=== PATIENT | male | born 1950 | race Caucasian/White ===

== ENCOUNTER 2018-07-14 12:25 | Emergency (ER) | payer OTHER ==
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
[2018-07-14 12:59] LABS: Basophils % (A) 1 %; Eosinophils # (A) 0.2 k/uL (0-0.7); Eosinophils % (A) 3 %; HCT 47.9 % (39.0-53.0); HGB 15.3 gm/dL (13.0-17.5); Lymphocytes # (A) 1.3 k/uL (1.0-4.8); Lymphocytes % (A) 20 %; MCH 28.6 pg (25.0-35.0); MCV 89.5 fL (80.0-100.0); Mean Platelet Volume 6.7; Monocytes # (A) 0.4 k/uL (0-1.0); Monocytes % (A) 6 %; Neutrophils # (A) 4.6 k/uL (1.3-7.7); Neutrophils % (A) 69 %; Platelet Count 191 k/uL (150-450); RBC 5.34 m/uL (4.30-5.90); RDW 13.3 % (11.5-15.5); WBC 6.7 k/uL (3.8-10.6)
[2018-07-14 13:10] LABS: ALT 22 U/L (21-72); AST 22 U/L (17-59); Albumin 3.7 g/dL (3.5-5.0); Alkaline Phosphatase 45 U/L (38-126); Anion Gap 8 mmol/L; Blood Urea Nitrogen 15 mg/dL (9-20); Calcium 8.7 mg/dL (8.4-10.2); Carbon Dioxide 25 mmol/L (22-30); Chloride 109 mmol/L (98-107); Glucose 104 mg/dL (74-99); Potassium 4.5 mmol/L (3.5-5.1); Sodium 142 mmol/L (137-145); Total Bilirubin 0.7 mg/dL (0.2-1.3); Total Protein 6.8 g/dL (6.3-8.2)
[2018-07-14 13:16] LABS: INR 1.1 (<1.2); Prothrombin Time 10.4 sec (9.0-12.0)
[2018-07-14 13:22] LABS: Alcohol <10 mg/dL; Creatine Kinase 52 U/L (55-170)
[2018-07-14 13:34] LABS: Creatine Kinase MB 0.5 ng/mL (0.0-2.4); Troponin I <0.012 ng/mL (0.000-0.034)
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
[2018-07-14 13:52] LABS: Partial Thromboplastin Time 20.7 sec (22.0-30.0)
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
[2018-07-14] MEDS ORDERED: HYDROcodone/APAP 5-325MG 1 EACH TAB PO STA (14:09)
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
[2018-07-14 14:52] LABS: Appearance,Urine Clear (Clear); Bilirubin,Urine Negative (Negative); Blood,Urine Negative (Negative); Color,Urine Yellow; Glucose,Urine (UA) Negative (Negative); Ketones,Urine Negative (Negative); Leukocyte Esterase,Urine Negative (Negative); Nitrite,Urine Negative (Negative); Protein,Urine Trace (Negative)
[2018-07-14 15:16] VITALS: BP 101/62; PULSE 56; RESP 18; TEMP 97
[2018-07-14 15:17] LABS: Specific Gravity,Urine >1.050 (1.001-1.035)
== END 2018-07-14 15:27 | disposition home or self-care (01) ==
LOC: EC 12:25
DX: S30.1XXA Contusion of abdominal wall, initial encounter (principal); M54.5 Low back pain; E78.5 Hyperlipidemia, unspecified; I10 Essential (primary) hypertension; J45.909 Unspecified asthma, uncomplicated; G47.30 Sleep apnea, unspecified; I25.2 Old myocardial infarction; Z79.899 Other long term (current) drug therapy; Z99.89 Dependence on other enabling machines and devices; V59.49XA Driver of pick-up truck or van injured in collision with other motor vehicles in traffic accident, initial encounter; Y92.410 Unspecified street and highway as the place of occurrence of the external cause
CPT/HCPCS: 36415; 93005; 86900; 86901; 80053; 82550; 82553; 84484; 85025; 85610; 85730; 86850; 81003; 80320; 72170; 71045; 72125; 70450; 71260; 74177; 99285; Q9967

== ENCOUNTER → 2023-09-25 | Outpatient (CLI) | payer MEDICARE, OTHER ==
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
== END | disposition home or self-care (01) ==
LOC: RADCTMAIN 13:15
PROVIDERS: ATTEND Orthopaedic Surgery
DX: M48.061 Spinal stenosis, lumbar region without neurogenic claudication (principal); M99.73 Connective tissue and disc stenosis of intervertebral foramina of lumbar region; M51.35 Other intervertebral disc degeneration, thoracolumbar region
CPT/HCPCS: 72128; 72131

== ENCOUNTER → 2023-12-06 | Outpatient (CLI) | payer OTHER | END | disposition home or self-care (01) | LOC: LABPAT 15:06 | PROVIDERS: ATTEND Orthopaedic Surgery | DX: Z01.812 Encounter for preprocedural laboratory examination (principal); Z22.322 Carrier or suspected carrier of Methicillin resistant Staphylococcus aureus; M43.16 Spondylolisthesis, lumbar region; M48.062 Spinal stenosis, lumbar region with neurogenic claudication | CPT/HCPCS: 86850; 86900; 86901; 87070 ==

== ENCOUNTER 2023-12-12 05:38 | Inpatient (IN) | payer OTHER ==
[2023-12-05 15:44] VITALS: BMI 28.7
--- NOTE | 2023-12-11 14:10 | P.HPOR ---
History of Present Illness H&P Date: 12/06/23 .D:Date: 12/06/23 : 01:51pm .T:Title: *[facility] History and Physical Date of :[birth year] [id number]: NKDA Age: 73 year Height: 6' Weight: 225 lbs BMI: 29.43 kg/m2 Occupation: Retired VAS: 8 Hand:Right IMPRESSION: It was my pleasure to have seen and examined Parviz. I reviewed the patient's clinical syndrome, physical findings, and imaging studies during the appointment today. It is my impression that the patient has a diagnosis of. 1. Grade I spondylolisthesis of L3 on L4 2. L3-4 spondylosis with stenosis 3. Bilateral lower extremity radiculopathy 4. Bilateral lower extremity weakness 5. Low back pain I outlined the natural course history without intervention and various interventional options. Spine Surgery Risk Review Mr. Cota is presenting for evaluation of low back and bilateral lower extremity pain, bilateral lower extremity numbness, tingling, and weakness. It was my pleasure to have seen and examined Mr. Cota. In our visit today we have had a chance to go over subjective complaints, physical examination findings and treatments including the natural course history without intervention and various interventional options. The patients imaging demonstrates: MRI L spine reviewed from OSH on 01/21/23: - Re-reviewed with the patient in office today. images reviewed with the patient. The symptoms states severe spondylosis and stenosis from L2 through S1. There is grade 1 anterior listhesis of L3 on L4 there is nearly complete disc collapse L4 5 and L5-S1. There is severe stenosis with nerve root turbulence noted from L1-L2 L2-L3 and L3-L4. This is due to his severe stenosis in this area with ligamental hypertrophy facet hypertrophy and disc herniation. Usual confirming to his overall flat back syndrome with a pelvic incidence and LL that are mismatched greater than 10. His lumbar lordosis is only 10 through L2. She has Modic endplate changes throughout as well. No acute fracture or lesion noted. CT scan completed at [facility] on 09/25/2023 of the Thoracolum bar Spine: images reviewedand demonstrate severe multilevel degenerative changes from L1 through S1 with vacuum disc phenomena L5-S1 L4-L5 L3-L4. There is decreased segmental lordosis from L3 through S1 with a grade 1 spondylolisthesis L3 on L4. There is near complete disc collapse L4-L5 severe spondylosis as well as L5-S1. There is increased segmental lordosis at L1-L2 compensatory. 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 This is in a hyperkyphotic manner. It is not however outside of abnormal ranges. No acute fracture or dislocation noted at this time. Severe stenosis is related to severe osteoarthritic changes spondylitic changes with facet overgrowth hypertrophy ligamentum flavum hypertrophy's spondylolisthesis and spondylosis. On physical exam, Mr. Cota demonstrates: A continued constant, ache-like pain throughout the low back that radiates down into the bilateral lower extremities with a sharp, shooting quality. The patient notes his right lower extremity pain is much more severe than the left at this time. The patient states his lower extremity pain is associated with numbness, tingling, and weakness. He states his symptoms worsen with all activity, which makes it very difficult for him to complete any of his activities of daily living. The patient reports experiencing severe sleep disturbances related to his ongoing pain and associated symptoms. He notes his symptoms have become intolerable. I have explained to the patient that as their condition progresses it will cause further neurological deficits and eventual paralysis. Based on the patients imaging, physical exam, and the rapid progression and disabling nature of their symptoms, at this time I recommend surgery in the form of a: [id number] decompression and fusion. I discussed the risk and benefits of this procedure at length with Mr. Cota. The patient agreed to considered pursuing the procedure above mentioned. Prior to surgery, she should follow up with her PCP (Cardio, ID, IM etc) for clearance. Questions were invited and answered, and the patient wishes to proceed as outlined below. Currently, I am recommendin.[id number] decompression and fusion 2.Follow up with PCP, advanced manufacturing consultant, and pressed or blown glass worker for surgical clearance 3.Review of surgical risks and benefits as well as an educational packet on the proposed surgical procedure. Risks: All surgical procedures come with inherent risks, including those related to positioning, anesthesia, intraoperative findings, and postoperative complications. It is important to understand that surgery does not come with any guarantee of a successful outcome as complications and adverse events are always possible. The patient was given a handout in office today discussing the surgical procedure and risks associated with the intervention, both of which were discussed with the patient. These risks include but are not limited to the following: * Experiencing same, different or even worse symptoms in back, neck, arms, or legs compared to before surgery. Requiring further surgery or other forms of treatment presently or at some time in the future at same or other levels of the intended spine surgery. On an extreme but fortunately relatively rare basis severe complication such as blindness, stroke, heart attack, temporary and/or permanent nerve injury, paralysis, coma, or may occur, sometimes without known explanation. Surgical complications may include but are not limited to risk of infection, fluid accumulation in the surgical dissection site, including a seroma or hematoma, that requires additional surgery, wound drainage, bleeding, new numbness or weakness, vision changes/loss, spinal fluid leakage, non-healing and/or infected incision, headaches, difficulty or inability to swallow, hoarseness, hemopneumothorax, pneumothorax, impotence, retrograde ejaculation, vaginal dryness; injury to nerves, spinal cord, blood vessels, lymphatics or other vital organs (i.e., bowel injury, injury to the great vessels); he terotopic bone formation; complications related to the hardware such as screws, rods, cages including misplaced hardware, device failure, instrumentation at the wrong spine level, hardware fracture/breakage, or hardware loosening; vertebral failure of the spinal column above or below the newly placed hardware; retained surgical instrumentations or devices and the need for further surgery. * Medical risks of the planned spine surgery include but are not limited to generalized Infections to the whole body or local areas outside of the surgical site (sepsis), heart attack, bleeding, anaphylaxis, meningitis, seizure, epilepsy, hearing loss, burn salgado, laceration of the head or other areas of the body, bruising, hypersensitivity of the skin, bladder over distension; allergic reaction; shoulder injury related to positioning; fat, blood and air clots to other areas of the body like heart, lungs, brain; failure of internal organs such as lungs, kidneys, liver and excessive bleeding. If blood transfusions are necessary, note that transfusions may cause intolerance reactions such as anaphylaxis or other complex reactions. Despite best efforts, the results of spine surgery might not heal in terms of bone, soft tissues such as skin, fascia, ligaments, and joints. Additionally, in order to achieve best possible results, spine surgery may be carried out beyond the initially planned levels and involve decompression, fusion including insertion of hardware at levels other than the original intended area of surgical interest change some portions of the procedure in order to ensure the best possible outcomes. With spine surgery and spinal fusion, there are different off label uses of instrumentation (devices, implants and hardware) as well as biological substances (bone morphogenic proteins, demineralized bone matrix) as well as using extra bone from allograft sources (i.e. cadaver bone) or autograft (iliac crest bone, ribs, or the spine itself). The patient has been given information about these practices and their inherent risks and benefits. [facility] is an educational center that serves as a training facility for neurosurgical and orthopedic GUEST SERVICES and Nursing students. Physician assistants are medically trained surgical providers who function in the outpatient, inpatient, and operating room setting under the direct supervision of the attending surgeon. [facility] has multiple operating rooms with single and overlapping rooms running daily. They currently function under the required guidelines as produced by the [facility] Finance Committee with regards to the overlapping rooms and will continue to comply with changes to this policy as they occur. The requirements include and are complied with as follows: (1) the critical portions of the overlapping rooms will not occur at the same time, (2) the attending physician will be physically present during the critical portions of the procedure and immediately available during the entire case, and (3) a back-up attending is designated should the primary attending not be immediately available. The patient has had a chance to review all the listed information, has been given print outs detailing this information, and has had all his/her questions answered to their satisfaction. It was my pleasure to have seen and examined Mr. Cota. In our visit today we have had a chance to go over my understanding of our patient's current condition, the natural course history without intervention and various interventional options. Questions were invited and answered, and the patient wishes to proceed as outlined above. I have seen and examined the patient for 25 minutes and we have spent more than 50% of the time in repeat and detailed counseling about the patient's condition, its natural course history with out and as much as can be predicted with surgery and re-review of various surgical treatment options. In conclusion, Mr. Cota requested we proceed with the above suggested surgery and are willing to accept risks and limitations of the suggested surgery as nature of the disease process and our best attempts at treatment for the condition. Thank you again for allowing us to be part of your patient's care. Please don't hesitate to contact me if you have any further questions. Follow-up: Post procedure Patient Education: (Informational booklet, instructions, etc) given at today's appointment: Yes .ED:Patient Education: Y Medications Reviewed: YES In our visit today Mr. Cota and I have had a chance to go over my understanding of the patient's current condition, the natural course history without intervention and various interventional options. Questions were invited and answered, and the patient wishes to proceed as outlined above. I will be sure to keep you updated afterMrBere Cota returns here for further follow-up. Thank you again for your referral. Please do not hesitate to contact me if you have any further questions. Signed and authenticated by: [facility] [address] [address] This message is confidential, intended only for the named recipient(s) and may contain information that is privileged or exempt from disclosure under applica ble law. If you are not the intended recipient(s), you are notified that the dissemination, distribution or copying of this information is strictly prohibited. If you received this message in error, please notify the sender then delete this message. Patient verbalizes understanding of the information discussed. The above note was initiated by Indigo Hernandez, physician recording assistant to the vice president for Dr. Lewis Argueta. This note has been reviewed by Dr. Argueta, who has made his personal changes and impressions for this document. CC: Analia Caldera at [facility] Past Medical History Past Medical History: Asthma, GERD/Reflux, Hyperlipidemia, Hypertension, Myocardial Infarction ([place]), Prostate Disorder, Sleep Apnea/CPAP/BIPAP Additional Past Medical History / Comment(s): Enlarged prostate, does not use C- PAP, Vertigo, numbness at times to rt leg. Last Myocardial Infarction Date:: 1998 History of Any Multi-Drug Resistant Organisms: None Reported Past Surgical History: No Surgical Hx Reported Additional Past Surgical History / Comment(s): Repair devitated septum. Past Anesthesia/Blood Transfusion Reactions: No Reported Reaction, Motion Sickness Smoking Status: Never smoker - Past Family History Father Family Medical History: No Reported History Medications and Allergies Home Medications Medication Instructions Recorded Confirmed Type Loratadine [Claritin] 10 mg PO DAILY PRN 07/14/18 12/07/23 History Omeprazole [PriLOSEC] 20 mg PO QAM 07/14/18 12/07/23 History Pravastatin Sodium 80 mg PO HS 07/14/18 12/07/23 History allopurinoL [Zyloprim] 100 mg PO DAILY 07/14/18 12/07/23 History amLODIPine [Norvasc] 10 mg PO DAILY@1200 07/14/18 12/07/23 History lisinopriL [Prinivil] 20 mg PO BID 07/14/18 12/07/23 History Albuterol Inhaler [Ventolin Hfa 1 - 2 puff INHALATION Q6H PRN 12/07/23 12/07/23 History Inhaler] Aspirin 81 mg PO DAILY 12/07/23 12/07/23 History Calcium Carbonate/Vitamin D3 1 each PO BID 12/07/23 12/07/23 History [Calcium 500 mg-Vit D3 5 mcg (200 Unit)] Magnesium(Unk Dose) 1 dose PO DAILY 12/07/23 12/07/23 History Meclizine HCl 12.5 mg PO TID PRN 12/07/23 12/07/23 History Nitroglycerin Sl Tabs [Nitrostat] 0.4 mg SUBLINGUAL Q5M PRN 12/07/23 12/07/23 History Tamsulosin HCl [Flomax] 0.4 mg PO BID 12/07/23 12/07/23 History Allergies Allergy/AdvReac Type Severity Reaction Status Date / Time No Known Allergies Allergy Verified 12/05/23 15:33 Physical Examination Osteopathic Statement: *. No significant issues noted on an osteopathic structural exam other than those noted in the History and Physical/Consult.
[~2023-12-12 05:38] MED LIST: TRANEXAMIC 1,000 MG/100ML-NACL 1,000 MG in SALINE 1 100ML.BAG IVPB PRN
[2023-12-12] MEDS ORDERED: LIDOCAINE 1% (10MG/ML) FOR IV START INTRADERMA PRN (05:47)
[2023-12-12] MEDS: LACTATED RINGERS 1,000 ML IV SCH (05:58)
[2023-12-12] MEDS: ACETAMINOPHEN TAB 500 MG TAB PO PRN (06:08)
[2023-12-12] MEDS: GABAPENTIN 300 MG CAP PO PRN (06:08)
[2023-12-12] MEDS: ONDANSETRON 4 MG/2 ML VIAL IVP PRN (06:33)
[2023-12-12] MEDS ORDERED: ONDANSETRON 4 MG/2 ML VIAL ONE (06:44)
[2023-12-12] MEDS: ONDANSETRON 4 MG/2 ML VIAL IVP ONE (06:53)
[2023-12-12] MEDS: fentaNYL (PF) 50 MCG/ML 2 ML AMP IVP ONE (06:54)
[2023-12-12] MEDS: MIDAZOLAM 2 MG/2 ML VIAL IVP ONE (06:54)
[2023-12-12] MEDS ORDERED: HYDROmorphone 0.5 MG/0.5 ML SYRINGE IVP PRN (07:00)
[2023-12-12] MEDS ORDERED: SUCCINYLCHOLINE CHLORIDE 200 MG/10 ML VIAL IV ONE (07:28)
[2023-12-12] MEDS ORDERED: CALCIUM CHLORIDE 100 MG/ML 10 ML SYRINGE ONE (07:28)
[2023-12-12] MEDS ORDERED: ePHEDrine 50 MG/ML 1 ML VIAL ONE (07:28)
[2023-12-12] MEDS ORDERED: GLYCOPYRROLATE 0.2 MG/ML 2 ML VIAL ONE (07:28)
[2023-12-12] MEDS ORDERED: TRANEXAMIC 1,000 MG/100ML-NACL PREMIX BAG ONE (07:28)
[2023-12-12] MEDS ORDERED: ROCURONIUM 10 MG/ML (5 ML VIAL) IV ONE (07:28)
[2023-12-12] MEDS ORDERED: ALBUMIN HUMAN 5% (25gm) 500 ML VIAL IVPB ONE (07:28)
[2023-12-12] MEDS ORDERED: KETAMINE HCL IN 0.9 % NACL 50 MG/5 ML SYRINGE ONE (07:28)
[2023-12-12] MEDS ORDERED: NEOSTIGMINE 1 MG/ML 10 ML VIAL ONE (07:28)
[2023-12-12] MEDS ORDERED: PROPOFOL 10 MG/ML 20 ML VIAL IV ONE (07:28)
[2023-12-12] MEDS ORDERED: fentaNYL (PF) 50 MCG/ML 2 ML AMP ONE (07:28)
[2023-12-12] MEDS ORDERED: PHENYLEPHRINE 10 MG/ML VIAL ONE (07:28)
[2023-12-12] MEDS ORDERED: LIDOCAINE 1% INJ 10MG/ML (20 ML MDV) ONE (07:28)
[2023-12-12] MEDS ORDERED: VASOPRESSIN 20 UNIT/ML 1 ML VIAL ONE (07:28)
[2023-12-12] MEDS: LACTATED RINGERS 1,000 ML IV ONE ×4 (07:40→15:52)
--- NOTE | 2023-12-12 07:56 | XR ---
EXAMINATION TYPE: XR chest 1V portable DATE OF EXAM: 12/12/2023 7:43 AM CLINICAL INDICATION:Male, 73 years old with history of line placement verification; COMPARISON: Chest radiographs from 07/14/2018 TECHNIQUE: XR chest 1V portable Frontal view of the chest. FINDINGS: Lungs/Pleura: There is no evidence of pleural effusion, focal consolidation, or pneumothorax. Pulmonary vascularity: Unremarkable. Heart/mediastinum: Cardiomediastinal silhouette is unremarkable. Musculoskeletal: No acute osseous pathology. Other findings: None Lines/Tubes: Right internal jugular central venous catheter with distal tip at the cavoatrial junction. IMPRESSION: 1. Right central line placement with tip in appropriate position. 2. No acute cardiopulmonary disease/process.
[2023-12-12] MEDS: ceFAZolin 3,000 MG in SODIUM CHLORIDE 0.9% IRRIGATIO 3,000 ML IRRIGATION ONE (08:21)
[2023-12-12] MEDS: GENTAMICIN 80 MG in SODIUM CHLORIDE 0.9% IRRIGATIO 3,000 ML IRRIGATION ONE (08:21)
[2023-12-12] MEDS: THROMBIN (BOVINE) 5,000 UNIT VIAL TOPICAL ONE (08:21)
[2023-12-12] MEDS: GELATIN SPONGE,ABSORB (LARGE) 1 EACH SPONGE TOPICAL ONE (08:21)
--- NOTE | 2023-12-12 12:02 | P.ANPRN ---
Procedure Note - Anesthesia - Invasive Line Left Arterial Line Time Out Performed: Yes (0700) Date of Procedure: 12/12/23 Time of Procedure: 07:01 Location of Patient: PreOp Preparation: Sterile Prep, Sterile Dressing Arterial Line Location: Radial (left) Ultrasound Used: Yes Purpose - Visualization and Identification of Vasculature: Yes Needle Guage: 20g Image Stored and Saved: Yes Narrative: Central line placement per sterile protocol utilized. +sterile protocol +local +pulsitle flow. +bled and flushed. Dressed with biopatch/dressing
--- NOTE | 2023-12-12 12:04 | P.ANPRN ---
Procedure Note - Anesthesia - Invasive Line Right Central Line Time Out Performed: Yes (0700) Date of Procedure: 12/12/23 Time of Procedure: 07:15 Location of Patient: PreOp Preparation: Sterile Prep, Sterile Dressing Central Line Location: Internal Jugular (right) Ultrasound Used: Yes Purpose - Visualization and Identification of Vasculature: Yes Needle Guage: 18g angio Image Stored and Saved: Yes Narrative: Central line placement per sterile protocol utilized. Anesthesia note Procedure: Right internal jugular central venous catheter insertion: Double- lumen catheter Sterile protocol followed. Right neck prepped. Ultrasound used. Lidocaine 1% used. Using ultrasound local anesthetic was instilled site over right Internal Jugular vein. Angiocath was used to gain access via ultrasound. Once free flow non-pulsatile blood flow was confirmed, 12 inch extension tubing was then placed on Angiocath. Once central venous pressure was confirmed, J-wire was then placed through Angiocath. Angiocath was then withdrawn. Local was instilled at J-wire site. Small skin joanne was then made with provided sterile scalpel. Right IJ double-lumen catheter was then inserted over the wire while maintaining control of wire at all times. Uneventful insertion with dilation. Free flow nonpulsatile blood flow through catheter. Lumens blood and flushed. Secured with suture. Dressings applied. Drapes Removed. Attempts x1.
[2023-12-12 12:35] LABS: ABG Ionized Calcium 5.1 mg/dL (4.5-5.3); ABG Lactic Acid Whole Blood 1.6 mmol/L (0.5-1.6); ABG Oxygen Saturation 99.2 % (94-97); ABG PH 7.34 (7.35-7.45); ABG PO2 292 mmHg (83-108); ABG Potassium Whole Blood 3.6 mmol/L (3.4-4.5); ABG Sodium Whole Blood 141 mmol/L (135-146); Allen Test Performed? Yes
[2023-12-12 13:11] LABS: ABG Base Excess -1.9 mmol/L; ABG Glucose Whole Blood 180 mg/dL (75-99); ABG HCO3 24 mmol/L (21-25); ABG Hematocrit 37 % (34.0-46.0); ABG PCO2 44 mmHg (35-45)
[2023-12-12] MEDS: VANCOMYCIN 1,000 MG VIAL MISCELLANE ONE (13:44)
--- NOTE | 2023-12-12 14:19 | FL ---
EXAMINATION TYPE: FL guidance operating room, XR lumbar spine 2 or 3V Intraoperative/procedural fluor oscopic services were provided. Total fluoroscopy time is 1.23 minutes with a total of 9 submitted im ages to PACS. Please see the operative/procedural note for further details. DAP: 16.25 to Gycm2
[2023-12-12 14:56] LABS: Glucose,Whole Blood 151 mg/dL (70-110)
[2023-12-12 15:05] LABS: HCT 35.1 % (39.0-53.0); HGB 11.9 gm/dL (13.0-17.5); MCH 30.2 pg (25.0-35.0); MCV 88.8 fL (80.0-100.0); Mean Platelet Volume 7.7; Platelet Count 153 k/uL (150-450); RBC 3.95 m/uL (4.30-5.90)
[2023-12-12] MEDS: HYDROmorphone 0.5 MG/0.5 ML SYRINGE IVP ONE ×2 (15:10→15:33)
[2023-12-12 16:51] LABS: Glucose,Whole Blood 129 mg/dL (70-110)
[2023-12-12] MEDS: HYDROcodone/APAP 5-325MG 1 EACH TAB PO PRN (17:29)
[2023-12-12] MEDS ORDERED: ALBUTEROL NEBULIZED 2.5 MG/3 ML INHALATION PRN (17:53)
--- NOTE | 2023-12-12 18:23 | P.OP ---
Date of Procedure: 12/12/23 Preoperative Diagnosis: Current Active Problems Lumbar stenosis with neurogenic claudication (Acute) Neurogenic claudication due to lumbar spinal stenosis (Acute) Multilevel lumbosacral spondylosis with radiculopathy (Acute) Lumbosacral spondylosis with radiculopathy (Acute) Lumbar spondylosis with myelopathy (Acute) Atrophy of muscle of both lower legs (Acute) Postoperative Diagnosis: Current Active Problems Lumbar stenosis with neurogenic claudication (Acute) Neurogenic claudication due to lumbar spinal stenosis (Acute) Multilevel lumbosacral spondylosis with radiculopathy (Acute) Lumbosacral spondylosis with radiculopathy (Acute) Lumbar spondylosis with myelopathy (Acute) Atrophy of muscle of both lower legs (Acute) Procedure(s) Performed: 42857 OSTEOTOMY OF SPINE, POSTERIOR OR POSTEROLATERAL APPROACH, 3 COLUMNS, 1 VERTEBRAL SEGMENT (EG, PEDICLE/VERTEBRAL BODY SUBTRACTION); LUMBAR L5-S1 85543 ARTHRODESIS, COMBINED POSTERIOR OR POSTEROLATERAL TECHNIQUE WITH POSTERIOR INTERBODY TECHNIQUE INCLUDING LAMINECTOMY AND/OR DISCECTOMY SUFFICIENT TO PREPARE INTERSPACE (OTHER THAN FOR DECOMPRESSION), SINGLE INTERSPACE, LUMBAR; L2-3 12623/50 ARTHRODESIS, SACROILIAC JOINT, OPEN, INCLUDES OBTAINING BONE GRAFT, INCLUDING INSTRUMENTATION, WHEN PERFORMED SIJ BILATERAL 44412 ARTHRODESIS, POSTERIOR OR POSTEROLATERAL TECHNIQUE, SINGLE INTERSPACE; THORACIC T10-T11 17685 POSTERIOR SEGMENTAL INSTRUMENTATION (EG, PEDICLE FIXATION, DUAL RODS WITH MULTIPLE HOOKS AND SUBLAMINAR WIRES); 7 TO 12 VERTEBRAL SEGMENTS [id number] 04984 LAMINECTOMY, FACETECTOMY, OR FORAMINOTOMY (UNILATERAL OR BILATERAL WITH DECOMPRESSION OF SPINAL CORD, CAUDA EQUINA AND/OR NERVE ROOT[S] [EG, SPINAL OR LATERAL RECESS STENOSIS]), DURING POSTERIOR INTERBODY ARTHRODESIS, LUMBAR; SINGLE VERTEBRAL SEGMENT LUMBAR L2-3 FOR DEFORMITY CORRECTION AND DECOMPRESSION OF NEURAL ELEMENTS 39674 PELVIC FIXATION (ATTACHMENT OF CAUDAL END OF INSTRUMENTATION TO PELVIC BONY STRUCTURES) OTHER THAN SACRUM BILATERAL [id number] INSERTION OF INTERBODY BIOMECHANICAL DEVICE(S) (EG, SYNTHETIC CAGE, MESH) WITH INTEGRAL ANTERIOR INSTRUMENTATION FOR DEVICE ANCHORING (EG, SCREWS, FLANGES), WHEN PERFORMED, TO INTERVERTEBRAL DISC SPACE IN CONJUNCTION WITH INTERBODY ARTHRODESIS, EACH INTERSPACE L2-3, L3-4, L3-4, L5-S1 91219 OSTEOTOMY OF SPINE, POSTERIOR OR POSTEROLATERAL APPROACH, 3 COLUMNS, 1 VERTEBRAL SEGMENT (EG, PEDICLE/VERTEBRAL BODY SUBTRACTION); EACH ADDITIONAL VERTEBRAL SEGMENT (LIST SEPARATELY IN ADDITION TO CODE FOR PRIMARY PROCEDURE) L4-5 [id number] ARTHRODESIS, COMBINED POSTERIOR OR POSTEROLATERAL TECHNIQUE WITH POSTERIOR INTERBODY TECHNIQUE INCLUDING LAMINECTOMY AND/OR DISCECTOMY SUFFICIENT TO PREPARE INTERSPACE (OTHER THAN FOR DECOMPRESSION), SINGLE INTERSPACE, LUMBAR; EACH ADDITIONAL INTERSPACE L3-4, L4-5, L5-S1 [id number] ARTHRODESIS, POSTERIOR OR POSTEROLATERAL TECHNIQUE, SINGLE INTERSPACE; EACH ADDITIONAL INTERSPACE T11-12, T12-L1, L1-2 56575 X2 LAMINECTOMY, FACETECTOMY, OR FORAMINOTOMY (UNILATERAL OR BILATERAL WITH DECOMPRESSION OF SPINAL CORD, CAUDA EQUINA AND/OR NERVE ROOT[S] [EG, SPINAL OR LATERAL RECESS STENOSIS]), DURING POSTERIOR INTERBODY ARTHRODESIS, LUMBAR; EACH ADDITIONAL SEGMENT L3-4, L4-5, L5-S1 FOR DEFORMITY CORRECTION AND DECOMPRESSION OF NEURAL ELEMENTS 99617 STEREOTACTIC COMPUTER-ASSISTED (NAVIGATIONAL) PROCEDURE; SPINAL (LIST SEPARATELY IN ADDITION TO CODE FOR PRIMARY PROCEDURE) USE OF [employer] NAVIGATION FOR SCREW PLACEMENT AND CAGE PLANNING USE OF IONM, ALL SCREWS TESTING >20mA CPTMOD 22 EXTENT OF LUMBAR DISEASE, COMORBID CONDITIONS, SEVERITY OF CONDITION, AND HIGH TECHNICALITY OF THE CASE PROCEDURES WITH EXPECTED CODES T10-P Implants: -GLOBUS CREO SCREW AND MELA SYSTEM -XPAC CAGES X3 12MM, 10MM, 10MM ; MIRUS CAGE X1 10MM -SI BONE TORQ SCREWS 10.5X55 MM x2 -AUTOGRAFT, ALLOGRAFT, IFACTOR, MAGNATOS Anesthesia: MACKA Surgeon: Lewis Argueta Occupational Therapy Teacher #1: Alonso Cook (was present and assisted with all aspects of the case from position to clousre) Estimated Blood Loss (ml): 800 IV fluids (ml): 2,500 Urine output (ml): 500 Pathology: none sent Condition: stable Disposition: PACU Indications for Procedure: Mr. Cota is presenting for evaluation of low back and bilateral lower extremity pain, bilateral lower extremity numbness, tingling, and weakness. It was my pleasure to have seen and examined Mr. Cota. In our visit today we have had a chance to go over subjective complaints, physical examination findings and treatments including the natural course history without intervention and various interventional options. The patients imaging demonstrates: MRI L spine reviewed from OSH on 01/21/23: - Re-reviewed with the patient in office today. images reviewed with the patient. The symptoms states severe spondylosis and stenosis from L2 through S1. There is grade 1 anterior listhesis of L3 on L4 there is nearly complete disc collapse L4 5 and L5-S1. There is severe stenosis with nerve root turbulence noted from L1-L2 L2-L3 and L3-L4. This is due to his severe stenosis in this area with ligamental hypertrophy facet hypertrophy and disc herniation. Usual confirming to his overall flat back syndrome with a pelvic incidence and LL that are mismatched greater than 10. His lumbar lordosis is only 10 through L2. She has Modic endplate changes throughout as well. No acute fracture or lesion noted. CT scan completed at [facility] on 09/25/2023 of the Thoracolumbar Spine: images reviewedand demonstrate severe multilevel degenerative changes from L1 through S1 with vacuum disc phenomena L5-S1 L4-L5 L3-L4. There is decreased segmental lordosis from L3 through S1 with a grade 1 spondylolisthesis L3 on L4. There is near complete disc collapse L4-L5 severe spondylosis as well as L5-S1. There is increased segmental lordosis at L1-L2 compensatory. 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 This is in a hyperkyphotic manner. It is not however outside of abnormal ranges. No acute fracture or dislocation noted at this time. Severe stenosis is related to severe osteoarthritic changes spondylitic changes with facet overgrowth hypertrophy ligamentum flavum hypertrophy's spondylolisthesis and spondylosis. On physical exam, Mr. Cota demonstrates: A continued constant, ache-like pain throughout the low back that radiates down into the bilateral lower extremities with a sharp, shooting quality. The patient notes his right lower extremity pain is much more severe than the left at this time. The patient states his lower extremity pain is associated with numbness, tingling, and weakness. He states his symptoms worsen with all activity, which makes it very difficult for him to complete any of his activities of daily living. The patient reports experiencing severe sleep disturbances related to his ongoing pain and associated symptoms. He notes his symptoms have become intolerable. I have explained to the patient that as their condition progresses it will cause further neurological deficits and eventual paralysis. Based on the patients imaging, physical exam, and the rapid progression and disabling nature of their symptoms, at this time I recommend surgery in the form of a: [id number] decompression and fusion. I discussed the risk and benefits of this procedure at length with Mr. Cota. The patient agreed to considered pursuing the procedure above mentioned. Prior to surgery, she should follow up with her PCP (Cardio, ID, IM etc) for clearance. Questions were invited and answered, and the patient wishes to proceed as outlined below. Currently, I am recommendin.[id number] decompression and fusion Description of Procedure: [id number] Decompression and fusion LULU The patient was seen and examined in the preoperative area. All preoperative pr otocols were followed. Informed consent was obtained, risks and benefits of the procedure were discussed at length. Risks including bleeding infection damage to the surrounding tissue and risk of re-operation were discussed with the patient. Risk of anesthesia up to and including was discussed with the patient. These are outlined in the risk review. They were willing to accept these risks and all the risks of surgery. The patient was given a weight-based dose of antibiotics in the form of 3 g Ancef. The patient was seen and evaluated by the anesthesia team who deemed them fit for surgery. The site was marked, the patient was willing to proceed with the procedure. The patient was transferred to the operative suite by the Department of anesthesia. They were then drifted off to sleep by the department anesthesia and GETA was performed. The patient tolerated this well. Gonzalez catheter was placed by nursing staff, a-traumatically. Once confirmation of lines and ventilation the patient was transferred to a prone Trios spine table very carefully. The head was secured and stable. Xray confirmed alignment. All bony prominences including wrists, elbows, axilla, chest, hips, and thighs, and feet were padded very well. Special attention was paid to the genitalia, and these were padded accordingly. SCDs were placed on bilateral lower extremities and were connected. Arms were well padded and placed at 90/90 up and out and well padded. Safety strap and tape placed on the patient. Once in position, again we confirmed good ventilation capabilities and that lines were running appropriately. The patients lumbosacral pelvic was then exposed. Hair was removed for incision. 1010s were placed outlining the incision site. Standard alcohol was used to clean the incision site and allowed to dry. C-arm was used to bio-sundar the patient and confirm level for incision which was marked with a skin marker. Operative briefing was performed with all teams and everyone in a greement to proceed. The patient was then prepped and draped in a normal sterile fashion. Timeout was then performed, and all parties agreed with the procedure to be performed. Midline skin incision was then made over the previously bookmarked area and dissection taken down to the lumbosacral fascia which was identified and cleaned with a fields. Once midline was identified, fasciotomy was made over the SP of [id number]. Subperiosteal dissection was then taken down over the lamina and facet joints and TPs were exposed and trough made posterolateral. TPs were then decorticated L1-S1 and sacral ala with a high speed geeta for lateral fusion. Dissection was taken out over the sacrum to the pelvis. SI joint identified and modified Green starting point for pelvic screws identified as well. Retractors placed. Wound was irrigated and lateral image with penfield 4 placed at the pars of L4 confirmed levels for operation. SP clamp was then placed for the [employer] navigation tracker and secured at L2 for the first set of screws. The wound was then filled with NSS and Z-drape placed. A 3D Zhiem spin was then obtained and registered. Once confirmation of accuracy screws were then placed from T10-L2 using navigation. Navigated high speed geeta was used to make a check pilot hole followed by a navigated awl-tap passed through the pedicle into the body. A ball tip probe then confirmed within the pedicle. Globus Screws then measured and placed using a navigated screwdriver. After screws were placed from T10-L2 the tracker was replaced at S1 and a second 3D Ziehm spin was then obtained and registered. Once confirmation of accuracy screws were then placed from L3-Pelvis using navigation. AP image confirmed safe placement of screws. Screws were placed similarly as described above. For pelvic screws, starting point was selected with a navigated geeta and starting point made. Then a navigated awl/tap was passed through the corridor above the sciatic notch within bone. Virtual screw was dropped and a feeler was then used to confirm within bone. Then a navigated compactor driver was used to place screws in the pelvis bilaterally. We then repeated this for SIJ fusion bilateral. Navigated geeta was used to create starting point in S2Ai position just superior to the modified pelvic screw. The awl tap was then passed across the joint and virtual screw dropped. Torq screw was then selected and placed in this tapped area and this was done bilaterally. Geeta was used to geeta out the SIJ bilaterally and decorticate it extensively. Screws were confirmed to be safe, stabilizing and fusing the SIJ on AP/LAT/INLET/OUTLET films. We then irrigated the wound and tested screws. All screws tested > 20 mA. We then proceeded to decompression, deformity correction and interbody placement. Starting at L5-S1, bilateral laminectomy, complete facetectomy and foraminotomies were performed using high speed bur, Kerrison rongure. There was exuberant bone formation, osteophytes and scar tissue surrounding these joints as well as the dura. Once exposed the neural elements were protected and an intradiscal osteotomy, 3 column, was performed for deformity correction at L5- S1. Osteotome was used to make osteotomy in L5 and S1 and for complete disc removal. This was passed into the anterior 1/3 of L5. This allowed for loosening of this level and correction. Down biting curette was used to release the disc annulus and PLL across completely. This allow allowed for disc removal and cartilage removal followed by pituitary. Cage was then selected based on shaving and trials. Bleeding endplates were encountered and cartilage removed. Autograft, allograft were then placed anterior to the cage. The cage was then impacted into place under lateral imaging while protecting neural elements. The cage was then expanded into position and showed good lift and correction. Restorationist of lordosis and height achieved. Meticulous hemostasis then performed. Cage was backfilled with ifactor, autograft and arthrocell and the area irrigated. We then proceeded to L4-5. At L4-5, bilateral laminectomy, complete facetectomy and foraminotomy were performed as described above. Again, exuberant scar tissue and bone formation was encountered and at this level. There was also a large disc osteophyte complex that was identified once disc space was found. The dura was carefully d issected off this anteriorly and b/l. Once encountered, the disc space was then accessed in a similar fashion and neural elements protected. Once completed, intradiscal osteotomy, 3 column, was again performed for deformity correction as described above and complete discectomy performed there was good mobility at this level. Cage was then sized and selected. Trial was placed and confirmed on AP. Autograft and allograft was then placed anterior in the disc space and the cage was then inserted and impacted into place under lateral. AP image, as before, was taken to ensure midline placement. The cage was then expanded into position. The wound was irrigated. Meticulous hemostasis then performed, and attention turned to L3-4. At L3-4 again bilateral laminectomy, complete facetectomy and foraminotomy were performed. Exhuberend scar tissue encountered in the foramen at this level and this was removed off the nerves b/l with kerdiony and ang 4 very carfully. There was some EMG encountered on the left, but this was transient and stopped promptly. The elements were then protected, and disc space accessed. Sequential shaving performed until desired height and lordosis. Cage selected, and graft placed anterior to the cage within the disc space. Cage was then placed under lateral image, expanded and had good height, lordosis and deformity correction. The wound was irrigated, and meticulous hemostasis performed once again. We then proceeded to the L2-3 level. At L2-3 again bilateral laminectomy, complete facetectomy and foraminotomy were performed. Neural elements were mobilized and then protected, and disc space accessed. Sequential shaving performed until desired height and lordosis. Cage selected, and graft placed anterior to the cage within the disc space. Cage was then placed under lateral image, expanded and had good height, lordosis and deformity correction. The wound was irrigated, and meticulous hemostasis performed once again. AP imaging confirmed good placement of all cages and good reduction and coronal balance restored. Screws all in a good position. Attention was then drawn to mela placement and further reduction. Rods were selected, measured, cut and bent to appropriate lordosis. They were then secured into pelvic screws b/l. Sequential reduction then done into each screw and set screw placed. Set screws were then final tightened and lateral image showed good lordosis reduction with increase around 15 deg from starting. Once rods were secured, cross links were selected and placed and final tightened. The wound was then irrigated with 3L Ancef irrigation, 3L gentamicin irrigation, 2L betadine solution followed by 3L NSS. Surgicel was then placed on the dura, which was inspected and had no injury. Then, in the posterolateral gutter was placed, MagnatOs, Autograft and allograft. This was impacted into position and surgical placed over it. 2g Vanco powder was then placed deep in the wound. Deep subfascial drains were placed and secured with a stitch. We then proceeded with layered closure. #1 PDS placed in the deep fascia followed by a running unidirectional 0 stratafix. 0 Vicryl placed in the deep subq, 0 running stratafix placed in the superficial subq and adelita placed in the skin. The wound edges approximated very well. The wound was then cleaned with ETOH and dressed with optifoam dressing, drain sponges and tegaderms. Drains sewed into position. IONM confirmed no changes. The patient was then transferred off the [facility] spine table to their hospital bed a-traumatically. Drains continued to hold suction. The patient was then extubated and transferred to the ICU in stable condition having tolerated the procedure with no complications. seen in the PACU upon waking he was moving all 4 ext with good strength without any focal deficits. He was tired but doing well. VSS and he was getting ready to transfer to the ICU in stable condition.
--- NOTE | 2023-12-12 18:26 | P.CONS ---
History of Present Illness - Reason for Consult Consult date: 12/12/23 - History of Present Illness Patient is a 73-year-old male with history of CAD, hypertension, dyslipidemia, GERD, degenerative disc disease, GIOVANNA, asthma, gout, BPH, osteoarthritis presenting for elective T10 to pelvis decompression and fusion. [facility] has been consulted for medical management. Currently patient denies any chest pain, shortness of breath, abdominal pain, nausea, vomiting, urinary or bowel complaints. Patient did have blood loss and required pressors during the procedure which is why he is being monitored in medical ICU. Temperature 97.4, pulse 83, respiratory rate is 16, blood pressure 120/70, saturating at 94% on room air. WBC 14.0, hemoglobin 11.9, platelet 153, glucose range between 129- 1 51. Pertinent positives and negatives as discussed in HPI, a complete review of systems was performed and all other systems are negative. Patient seen and examined at bedside. Vital signs reviewed General: nontoxic, no distress, appears at stated age Derm: warm, dry, back dressing not observed Head: atraumatic, normocephalic, symmetric Eyes: EOMI, no lid lag, anicteric sclera, pupils equal round reactive to light ENT: Nose and ears atraumatic Neck: No thyromegaly, supple Mouth: no lip lesion, mucus membranes moist Cardiovascular: S1S2 reg, no murmur, no edema Lungs: clear to auscultation bilateral, no rhonchi, no rales, no wheeze, no accessory muscle use Abdominal: soft, nontender to palpation, no guarding, no appreciable organomegaly Ext: no gross muscle atrophy, muscle strength muscle strength 5 out of 5 in all 4 extremities, no contractures Neuro: CN II-XII grossly intact Psych: Alert, oriented, appropriate affect Assessment/Plan: Status post T10 to pelvis decompression and fusion Leukocytosis, anticipated outcome of surgery Acute blood loss anemia, anticipated outcome of surgery -He is status post 1 unit of PRBCs -Pain control with oral Tylenol scheduled, oral [place] as needed, IV Dilaudid as needed -Bowel regimen per Ortho spine surgery -SCDs for DVT prophylaxis -Currently being monitored in the medical ICU Hypertensioncontinue home amlodipine 10 mg daily and lisinopril 20 twice daily Goutcontinue allopurinol 100 mg daily BPHcontinue tamsulosin 0.4 mg twice daily CAD, holding aspirin, restart when okay per Ortho spine surgery Dyslipidemiacontinue pravastatin 80 mg nightly CBC and BMP pending for tomorrow Thank you for allowing us to participate in the care of this pleasant patient. Do not hesitate to contact us with questions. Someone can be reached from the [facility] hospitalist group all hours of the day at [phone] or via [employer]. Past Medical History Past Medical History: Asthma, GERD/Reflux, Hyperlipidemia, Hypertension, Myocardial Infarction ([place]), Prostate Disorder, Sleep Apnea/CPAP/BIPAP Additional Past Medical History / Comment(s): Enlarged prostate, does not use C- PAP, Vertigo, numbness at times to rt leg. Last Myocardial Infarction Date:: 1998 History of Any Multi-Drug Resistant Organisms: None Reported Past Surgical History: No Surgical Hx Reported Additional Past Surgical History / Comment(s): Repair devitated septum. Past Anesthesia/Blood Transfusion Reactions: No Reported Reaction, Motion Sickness Smoking Status: Never smoker - Past Family History Father Family Medical History: No Reported History Medications and Allergies Home Medications Medication Instructions Recorded Confirmed Type Loratadine [Claritin] 10 mg PO DAILY PRN 07/14/18 12/12/23 History Omeprazole [PriLOSEC] 20 mg PO QAM 07/14/18 12/12/23 History Pravastatin Sodium 80 mg PO HS 07/14/18 12/12/23 History allopurinoL [Zyloprim] 100 mg PO DAILY 07/14/18 12/12/23 History amLODIPine [Norvasc] 10 mg PO DAILY@1200 07/14/18 12/12/23 History lisinopriL [Prinivil] 20 mg PO BID 07/14/18 12/12/23 History Albuterol Inhaler [Ventolin Hfa 1 - 2 puff INHALATION Q6H PRN 12/07/23 12/12/23 History Inhaler] Aspirin 81 mg PO DAILY 12/07/23 12/12/23 History Calcium Carbonate/Vitamin D3 1 each PO BID 12/07/23 12/12/23 History [Calcium 500 mg-Vit D3 5 mcg (200 Unit)] Magnesium(Unk Dose) 1 dose PO DAILY 12/07/23 12/12/23 History Meclizine HCl 12.5 mg PO TID PRN 12/07/23 12/12/23 History Nitroglycerin Sl Tabs [Nitrostat] 0.4 mg SUBLINGUAL Q5M PRN 12/07/23 12/12/23 History Tamsulosin HCl [Flomax] 0.4 mg PO BID 12/07/23 12/12/23 History Allergies Allergy/AdvReac Type Severity Reaction Status Date / Time No Known Allergies Allergy Verified 12/12/23 05:53 Physical Exam Vitals: Vital Signs Temp Pulse Pulse Pulse Resp BP BP 12/12/23 18:12 96.5 F L 84 16 129/71 12/12/23 18:06 96.5 F L 82 16 130/73 12/12/23 18:00 96.5 F L 86 16 12/12/23 17:45 87 16 137/69 12/12/23 17:30 80 16 132/70 12/12/23 17:15 88 16 132/70 12/12/23 17:00 89 22 120/70 12/12/23 16:45 88 12/12/23 16:44 83 16 120/70 12/12/23 16:30 97.4 F L 85 18 109/56 12/12/23 16:08 86 14 101/55 12/12/23 16:00 84 22 105/57 12/12/23 15:48 97.5 F L 78 12 108/60 12/12/23 15:45 81 15 119/57 12/12/23 15:42 96.7 F L 84 18 119/57 12/12/23 15:30 82 13 110/56 12/12/23 15:15 84 16 115/53 12/12/23 15:00 83 14 111/53 12/12/23 14:45 82 14 100/54 12/12/23 14:30 97.0 F L 81 14 111/75 12/12/23 07:32 58 L 16 141/63 12/12/23 06:57 65 16 103/54 12/12/23 06:55 57 L 16 89/57 12/12/23 06:49 39 L 16 73/49 12/12/23 06:14 97.2 F L 74 18 156/74 Pulse Ox 12/12/23 18:12 12/12/23 18:06 95 12/12/23 18:00 95 12/12/23 17:45 95 12/12/23 17:30 94 L 12/12/23 17:15 95 12/12/23 17:00 93 L 12/12/23 16:45 12/12/23 16:44 94 L 12/12/23 16:30 93 L 12/12/23 16:08 93 L 12/12/23 16:00 93 L 12/12/23 15:48 93 L 12/12/23 15:45 93 L 12/12/23 15:42 12/12/23 15:30 94 L 12/12/23 15:15 97 12/12/23 15:00 98 12/12/23 14:45 99 12/12/23 14:30 99 12/12/23 07:32 95 12/12/23 06:57 98 12/12/23 06:55 96 12/12/23 06:49 95 12/12/23 06:14 95 Intake and Output 12/12/23 12/12/23 12/12/23 06:59 14:59 22:59 Intake Total 300 2752 310 Output Total 1380 100 Balance 300 1372 210 Intake: IV 300 2752 Blood Product 310 Rc As-1 Unit 310 [id number] Output: Urine 580 100 Estimated Blood Loss 800 Other: Weight 94.4 kg ABP, PAP, CO, CI - Last 8 Hours Arterial Blood Pressure 149/56 Arterial Blood Pressure 152/60 Arterial Blood Pressure 153/54 Arterial Blood Pressure 157/54 Results CBC & Chem 7: 12/12/23 14:50 Labs: Abnormal Lab Results - Last 24 Hours (Table) 12/06/23 12/12/23 12/12/23 Range/Units 15:25 14:50 14:55 WBC 14.0 H (3.8-10.6) k/uL RBC 3.95 L (4.30-5.90) m/uL Hgb 11.9 L (13.0-17.5) gm/dL Hct 35.1 L (39.0-53.0) % POC Glucose (mg/dL) 151 H (70-110) mg/dL Crossmatch See Detail 12/12/23 Range/Units 16:49 WBC (3.8-10.6) k/uL RBC (4.30-5.90) m/uL Hgb (13.0-17.5) gm/dL Hct (39.0-53.0) % POC Glucose (mg/dL) 129 H (70-110) mg/dL Crossmatch
[2023-12-12] MEDS: ACETAMINOPHEN TAB 325 MG TAB PO SCH (18:54)
[2023-12-12] MEDS: HYDROmorphone 0.5 MG/0.5 ML SYRINGE IVP PRN (20:08)
[2023-12-12] MEDS: CYCLOBENZAPRINE 10 MG TAB PO PRN (20:08)
[2023-12-12] MEDS: lisinopriL 20 MG TAB PO SCH (20:40)
[2023-12-12] MEDS: TAMSULOSIN 0.4 MG CAP.ER.24H PO SCH (20:40)
[2023-12-12] MEDS: PRAVASTATIN SODIUM 80 MG TAB PO SCH (20:40)
[2023-12-12] MEDS: MECLIZINE 12.5 MG TAB PO PRN (20:40)
[2023-12-12 21:48] LABS: HCT 37.8 % (39.0-53.0); HGB 12.8 gm/dL (13.0-17.5); MCH 30.1 pg (25.0-35.0); MCHC 33.7 g/dL (31.0-37.0); MCV 89.3 fL (80.0-100.0); Mean Platelet Volume 7.9; Platelet Count 127 k/uL (150-450); RBC 4.24 m/uL (4.30-5.90); RDW 13.2 % (11.5-15.5); WBC 10.5 k/uL (3.8-10.6)
[2023-12-12] MEDS: HYDROmorphone 1 MG/ML 1 ML SYRINGE IVP PRN (22:45)
[2023-12-12 23:44] LABS: Glucose,Whole Blood 130 mg/dL (70-110)
[2023-12-13] MEDS: HYDROcodone/APAP 10-325MG 1 EACH TAB PO PRN (02:51)
[2023-12-13 03:03] LABS: Basophils % (A) 0 %; Eosinophils # (A) 0.2 k/uL (0-0.7); Eosinophils % (A) 2 %; HCT 38.4 % (39.0-53.0); HGB 13.2 gm/dL (13.0-17.5); Lymphocytes # (A) 0.9 k/uL (1.0-4.8); Lymphocytes % (A) 9 %; MCH 30.6 pg (25.0-35.0); MCHC 34.2 g/dL (31.0-37.0); MCV 89.5 fL (80.0-100.0); Mean Platelet Volume 7.8; Monocytes # (A) 0.6 k/uL (0-1.0); Monocytes % (A) 6 %; Neutrophils # (A) 8.2 k/uL (1.3-7.7); Neutrophils % (A) 82 %; Platelet Count 143 k/uL (150-450); RDW 13.4 % (11.5-15.5)
[2023-12-13 03:15] LABS: African American GFR (CKD) >90 (>60 ml/min/1.73 sqM); Anion Gap 3 mmol/L; Blood Urea Nitrogen 11 mg/dL (9-20); Calcium 8.3 mg/dL (8.4-10.2); Carbon Dioxide 27 mmol/L (22-30); Chloride 110 mmol/L (98-107); Glucose 107 mg/dL (74-99); Non-African American GFR(CKD) 90 (>60 ml/min/1.73 sqM); Potassium 4.4 mmol/L (3.5-5.1); Sodium 140 mmol/L (137-145)
[2023-12-13] MEDS: PANTOPRAZOLE 40 MG TABLET PO SCH (06:26)
--- NOTE | 2023-12-13 06:52 | P.CNPUL ---
History of Present Illness Consult date: 12/13/23 Requesting physician: Lewis Argueta Reason for consult: other (ICU management) Chief complaint: Elective back surgery History of present illness: I am seeing this patient in consultation today 12/13/2023 in the intensive care unit after an elective T10 to pelvis decompression and fusion. Patient is a 73-year-old white male with past medical history significant for severe multilevel lumbar spondylosis/stenosis with radiculopathy symptoms, asthma, GIOVANNA without CPAP, hyperlipidemia, hypertension, and coronary artery disease. Patient was brought in yesterday for an elective T10 to pelvis decompression and fusion with Dr. Argueta. Patient's perioperative period was relatively unremarkable. He reportedly had a brief episode of bradycardia and associated hypotension intraoperatively. It was felt the patient to be best monitored in the intensive care unit. He was extubated in recovery without incident. Patient is currently resting comfortably in bed, on 2 L/min nasal cannula, in no acute distress. Chest x-ray does not show any acute cardiopulmonary process. He does report some mild postsurgical lumbar back pain which is controlled with as needed Dilaudid and [place]'s. Bilateral lower extremities have good strength. There is some right lower extremity numbness, which is chronic, and not worse from baseline. No bowel incontinence. Patient does have an indwelling urinary catheter draining adequate amounts of urine. Heart rhythm on bedside monitor appears normal sinus with a rate of 70 bpm. Blood pressure is now normotensive. Not requiring any vasopressors. Estimated blood loss intraoperatively was approximately 900 mL. Patient did receive 1 unit PRBC and 2.7 L of crystalloid fluid. Most recent postoperative CBC includes a WBC count of 10.5, hemoglobin 12.8, hematocrit 37.8, and platelets 127. There is a Hemovac with a total of 370 mL of sanguinous output reported. Vital signs are stable. Review of Systems REVIEW OF SYSTEMS: CONSTITUTIONAL: Denies any recent significant weight loss or weight gain. EYES: Denies change in vision. EARS, NOSE, MOUTH, THROAT: Denies headaches, denies sore throat. CARDIOVASCULAR: Denies chest pain, palpitations or syncopal episodes. RESPIRATORY: Denies shortness of breath, cough, congestion or hemoptysis. GASTROINTESTINAL: Denies change in appetite, abdominal pain, nausea and vomiting, or diarrhea GENITOURINARY: Denies hematuria, denies infections. MUSKULOSKELETAL: Reports chronic lumbar back pain with associated worsening numbness and weakness of his lower extremities. Prior to this surgery, he is gradually become more debilitated while at home, now walking with a 4 leg walker. He requires multiple breaks while on his feet for prolonged period of time such as at the grocery store. Denies any bladder or bowel incontinence. Currently, the patient does admit some mild postsurgical incisional pain controlled with current analgesic regiment. He does have some mild right lower extremity numbness, not worse from baseline. INTEGUMENTARY: Denies rash, denies eczema. NEUROLOGICAL: Denies recent memory loss, no recent seizure activity. PSYCHIATRIC: Denies anxiety, denies depression. HEMATOLOGIC/LYMPHATIC: Denies anemia, denies enlarged lymph node Past Medical History Past Medical History: Asthma, GERD/Reflux, Hyperlipidemia, Hypertension, Myocardial Infarction ([place]), Prostate Disorder, Sleep Apnea/CPAP/BIPAP Additional Past Medical History / Comment(s): Enlarged prostate, does not use C- PAP, Vertigo, numbness at times to rt leg. Last Myocardial Infarction Date:: 1998 History of Any Multi-Drug Resistant Organisms: None Reported Past Surgical History: No Surgical Hx Reported Additional Past Surgical History / Comment(s): Repair devitated septum. Past Anesthesia/Blood Transfusion Reactions: No Reported Reaction, Motion Sickness Smoking Status: Never smoker - Past Family History Father Family Medical History: No Reported History Medications and Allergies Home Medications Medication Instructions Recorded Confirmed Type Loratadine [Claritin] 10 mg PO DAILY PRN 07/14/18 12/12/23 History Omeprazole [PriLOSEC] 20 mg PO QAM 07/14/18 12/12/23 History Pravastatin Sodium 80 mg PO HS 07/14/18 12/12/23 History allopurinoL [Zyloprim] 100 mg PO DAILY 07/14/18 12/12/23 History amLODIPine [Norvasc] 10 mg PO DAILY@1200 07/14/18 12/12/23 History lisinopriL [Prinivil] 20 mg PO BID 07/14/18 12/12/23 History Albuterol Inhaler [Ventolin Hfa 1 - 2 puff INHALATION Q6H PRN 12/07/23 12/12/23 History Inhaler] Aspirin 81 mg PO DAILY 12/07/23 12/12/23 History Calcium Carbonate/Vitamin D3 1 each PO BID 12/07/23 12/12/23 History [Calcium 500 mg-Vit D3 5 mcg (200 Unit)] Magnesium(Unk Dose) 1 dose PO DAILY 12/07/23 12/12/23 History Meclizine HCl 12.5 mg PO TID PRN 12/07/23 12/12/23 History Nitroglycerin Sl Tabs [Nitrostat] 0.4 mg SUBLINGUAL Q5M PRN 12/07/23 12/12/23 History Tamsulosin HCl [Flomax] 0.4 mg PO BID 12/07/23 12/12/23 History Allergies Allergy/AdvReac Type Severity Reaction Status Date / Time No Known Allergies Allergy Verified 12/12/23 05:53 Physical Exam Vitals: Vital Signs Temp Pulse Pulse Pulse Pulse Resp BP 12/13/23 00:00 75 80 16 12/12/23 23:00 97.9 F 118/59 12/12/23 22:00 68 12 118/82 12/12/23 21:30 67 16 119/64 12/12/23 21:00 80 17 12/12/23 20:30 84 13 115/66 12/12/23 20:00 97.5 F L 82 85 20 12/12/23 19:30 87 16 134/77 12/12/23 19:00 85 22 12/12/23 18:30 75 20 129/71 12/12/23 18:12 96.5 F L 84 16 129/71 12/12/23 18:06 96.5 F L 82 16 130/73 12/12/23 18:00 96.5 F L 86 16 12/12/23 17:45 87 16 137/69 12/12/23 17:30 80 16 132/70 12/12/23 17:15 88 16 132/70 12/12/23 17:00 89 22 120/70 12/12/23 16:45 88 12/12/23 16:44 83 16 120/70 12/12/23 16:30 97.4 F L 85 18 12/12/23 16:08 86 14 101/55 12/12/23 16:00 84 22 12/12/23 15:48 97.5 F L 78 12 108/60 12/12/23 15:45 81 15 12/12/23 15:42 96.7 F L 84 18 119/57 12/12/23 15:30 82 13 12/12/23 15:15 84 16 12/12/23 15:00 83 14 12/12/23 14:45 82 14 12/12/23 14:30 97.0 F L 81 14 12/12/23 07:32 58 L 16 12/12/23 06:57 65 16 12/12/23 06:55 57 L 16 12/12/23 06:49 39 L 16 12/12/23 06:14 97.2 F L 74 18 BP Pulse Ox 12/13/23 00:00 96 12/12/23 23:00 12/12/23 22:00 95 12/12/23 21:30 95 12/12/23 21:00 93 L 12/12/23 20:30 93 L 12/12/23 20:00 93 L 12/12/23 19:30 94 L 12/12/23 19:00 95 12/12/23 18:30 94 L 12/12/23 18:12 12/12/23 18:06 95 12/12/23 18:00 95 12/12/23 17:45 95 12/12/23 17:30 94 L 12/12/23 17:15 95 12/12/23 17:00 93 L 12/12/23 16:45 12/12/23 16:44 94 L 12/12/23 16:30 109/56 93 L 12/12/23 16:08 93 L 12/12/23 16:00 105/57 93 L 12/12/23 15:48 93 L 12/12/23 15:45 119/57 93 L 12/12/23 15:42 12/12/23 15:30 110/56 94 L 12/12/23 15:15 115/53 97 12/12/23 15:00 111/53 98 12/12/23 14:45 100/54 99 12/12/23 14:30 111/75 99 12/12/23 07:32 141/63 95 12/12/23 06:57 103/54 98 12/12/23 06:55 89/57 96 12/12/23 06:49 73/49 95 12/12/23 06:14 156/74 95 Intake and Output 12/12/23 12/12/2312/13/24 14:59 22:59 06:59 Intake Total 2752 880 190 Output Total 1380 1545 375 Balance 1372 -665 -185 Intake: IV 2752 Intake, IV Titration 170 90 Amount Lactated Ringers 1,000 ml 120 40 @ 0 mls/hr IV .[facility] Rx#:[id number] ceFAZolin 2 gm In Sodium 50 50 Chloride 0.9% 50 ml @ 100 mls/hr IVPB Q8HR [facility] Rx# :[id number] Oral 400 100 Blood Product 310 Rc As-1 Unit 310 [id number] Output: Drainage 220 150 Right Posterior Back 220 150 Urine 580 1325 225 Estimated Blood Loss 800 Other: Voiding Method Indwelling Catheter Indwelling Catheter ABP, PAP, CO, CI - Last 8 Hours Arterial Blood Pressure 136/59 Arterial Blood Pressure 126/52 Arterial Blood Pressure 118/58 Arterial Blood Pressure 145/59 Arterial Blood Pressure 151/56 Arterial Blood Pressure 147/51 Arterial Blood Pressure 151/57 Arterial Blood Pressure 153/58 Arterial Blood Pressure 144/52 GENERAL EXAM: Alert, 73-year-old white male, lying supine, fairly comfortable in no apparent distress. HEAD: Normocephalic and atraumatic EYES: Normal reaction of pupils, equal size. NOSE: Clear with pink turbinates. THROAT: No erythema or exudates. NECK: No masses, no JVD. CHEST: No chest wall deformity. LUNGS: Equal air entry with no crackles, wheeze, rhonchi or dullness. On 2 L/min nasal cannula. SpO2 96%. No conversational dyspnea or accessory muscle use.. CVS: S1 and S2 normal with no audible murmur, regular rhythm. No extra heart sounds ABDOMEN: No hepatosplenomegaly, active bowel sounds, no guarding or rigidity. SPINE: No scoliosis or deformity SKIN: No rashes CENTRAL NERVOUS SYSTEM: No focal deficits, tone is normal in all 4 extremities. Bilateral upper extremity strength graded 5/5. Bilateral lower extremity strength graded 5/5. Ambulation was deferred. Patellar DTRs 2+ bilaterally. No clonus. Lower extremity sensation equal. EXTREMITIES: There is no peripheral edema, clubbing, or cyanosis. Peripheral pulses are intact. Results - Laboratory Findings CBC and BMP: 12/13/23 02:55 12/13/23 02:55 Abnormal lab findings: Abnormal Labs 12/06/23 12/12/23 12/12/23 15:25 14:50 14:55 WBC 14.0 H RBC 3.95 L Hgb 11.9 L Hct 35.1 L Plt Count POC Glucose (mg/dL) 151 H Crossmatch See Detail 12/12/23 12/12/23 12/12/23 16:49 20:00 23:43 WBC RBC 4.24 L Hgb 12.8 L Hct 37.8 L Plt Count 127 L POC Glucose (mg/dL) 129 H 130 H Crossmatch - Diagnostic Findings Chest x-ray: image reviewed Assessment and Plan Assessment: Severe multilevel thoracolumbar spondylosis/stenosis with radiculopathy and neurogenic claudication status post-operative day #1 following a T10 to pelvis decompression and fusion. Acute blood loss anemia, expected outcome of surgery, status post 1 unit PRBC transfusion Possible vasovagal episode History of hypertension History of hyperlipidemia History of coronary disease History of asthma, stable History of obstructive sleep apnea without CPAP Plan: Patient is being monitored in the intensive care unit due to his prolonged intraoperative period and reported brief episode of bradycardia and hypotension, possible vasovagal episode. Currently, blood pressure is normotensive without any vasopressor support. Monitor for acute blood loss, patient is status post 1 unit PRBC transfusion Repeat labs in the morning Pharmacological DVT prophylaxis per surgical services. Currently has SCDs on. Postoperative pain is managed with current analgesics. Follow-up CT of the thoracic and lumbar spine is pending. Patient will be monitored in the intensive care unit at least overnight. I have personally seen and examined the patient, performed the documentation and the assessment and plan as written. Number of minutes spent on the visit:20 Time with Patient: Greater than 30
[2023-12-13 07:30] LABS: Glucose,Whole Blood 122 mg/dL (70-110)
--- NOTE | 2023-12-13 08:02 | CT ---
EXAMINATION TYPE: CT thor lumbar spine wo con CT DLP: 2129.6 mGycm, Automated exposure control for dose reduction was used. DATE OF EXAM: 12/12/2023 11:11 PM CLINICAL INDICATION:Male, 73 years old with history of s/p [id number] decompr fusion; s/p t-10-pelvis COMPARISON: 09/25/2023. TECHNIQUE: Axial images of the thoracic and lumbar spine were obtained without contrast. Coronal and sagittal reformats were performed. CT Contrast: Contrast used: mL of , none. Oral contrast used: none. FINDINGS: Postsurgical changes to the lumbar spine with fixation hardware at T10-S1. Discectomy at L2-L3 to L5- S1.. Hardware limits evaluation at these levels. Hardware appears intact. No evidence of fracture. Postsurgical changes in the soft tissues with foci of gas present. Drainage catheter with tubing in t he surgical bed. Posterior back skin adelita are present. Atelectasis changes in the lung bases. IMPRESSION: Postsurgical changes without evidence of immediate post operative complication.
[2023-12-13] MEDS: allopurinoL 100 MG TAB PO SCH (10:03)
--- NOTE | 2023-12-13 10:26 | P.PN ---
Subjective Progress Note Date: 12/13/23 Subjective: Patient seen and examined at bedside. No acute events overnight. He did feel a little lightheaded once he got out of the bed into the chair. No symptoms when he is lying straight Pertinent positives and negatives as discussed above, a complete review of systems was performed and all other systems are negative. Vitals Signs Reviewed. General: Nontoxic, no distress, appears at stated age Derm: Warm, dry, back dressing not observed, drain in place. Head: Atraumatic, normocephalic, symmetric Eyes: EOMI, no lid lag, anicteric sclera Mouth: No lip lesion, mucus membranes moist Cardiovascular: S1S2 reg, no murmur Lungs: CTA bilateral, no rhonchi, no rales, no accessory muscle use Abdominal: Soft, nontender to palpation, no guarding, no appreciable organomegaly Ext: No gross muscle atrophy, no edema, no contractures Neuro: CN II-XI grossly intact, no focal neuro deficits Psych: Alert, oriented, appropriate affect Data Reviewed Today: Pertinent Labs: WBC 10, hemoglobin 13.2, platelet 143, potassium 4.4, creatinine 0.77, glucose 10 7-1 30. Imaging: No new imaging Assessment and Plan: Status post T10 to pelvis decompression and fusion Leukocytosis, anticipated outcome of surgery, resolved Acute blood loss anemia, status post 1 unit of PRBCs, anticipated outcome of surgery, resolved -Pain control with oral Tylenol scheduled, Flexeril 3 times daily as needed, oral [place] as needed, IV Dilaudid as needed, monitor for sedation -Bowel regimen per Ortho spine surgery -SCDs for DVT prophylaxis -Currently being monitored in the medical ICU Hypertensioncontinue home amlodipine 10 mg daily and lisinopril 20 twice daily Goutcontinue allopurinol 100 mg daily BPHcontinue tamsulosin 0.4 mg twice daily CAD, holding aspirin, restart when okay per Ortho spine surgery Dyslipidemiacontinue pravastatin 80 mg nightly Thank you for allowing us to participate in the care of this pleasant patient. Do not hesitate to contact us with questions. Someone can be reached from the [facility] hospitalist group all hours of the day at [phone] or via [employer]. Objective - Vital Signs Vital signs: Vital Signs Temp 97.9 F 12/13/23 04:00 Pulse 69 12/13/23 06:00 Resp 14 12/13/23 06:00 BP 116/65 12/13/23 06:00 Pulse Ox 93 L 12/13/23 06:00 FiO2 Intake & Output 12/12/23 12/12/23 12/13/23 06:59 18:59 06:59 Intake Total 300 3152 790 Output Total 1950 2075 Balance 300 1202 -1285 Weight 94.4 kg 94.9 kg Intake: IV 300 2752 Intake, IV Titration 90 290 Amount Lactated Ringers 1,000 ml 40 240 @ 0 mls/hr IV .[facility] Rx#:[id number] ceFAZolin 2 gm In Sodium 50 50 Chloride 0.9% 50 ml @ 100 mls/hr IVPB Q8HR [facility] Rx# :[id number] Oral 500 Blood Product 310 Rc As-1 Unit 310 [id number] Output: Drainage 120 250 Right Posterior Back 120 250 Urine 1030 1825 Estimated Blood Loss 800 Other: Voiding Method Indwelling Catheter Indwelling Catheter ABP, PAP, CO, CI - Last Documented Arterial Blood Pressure 134/53 - Labs CBC & Chem 7: 12/13/23 02:55 12/13/23 02:55 Labs: Abnormal Lab Results - Last 24 Hours (Table) 12/06/23 12/12/23 12/12/23 Range/Units 15:25 14:50 14:55 WBC 14.0 H (3.8-10.6) k/uL RBC 3.95 L (4.30-5.90) m/uL Hgb 11.9 L (13.0-17.5) gm/dL Hct 35.1 L (39.0-53.0) % Plt Count (150-450) k/uL Neutrophils # (1.3-7.7) k/uL Lymphocytes # (1.0-4.8) k/uL Chloride (98-107) mmol/L Glucose (74-99) mg/dL POC Glucose (mg/dL) 151 H (70-110) mg/dL Calcium (8.4-10.2) mg/dL Crossmatch See Detail 12/12/23 12/12/23 12/12/23 Range/Units 16:49 20:00 23:43 WBC (3.8-10.6) k/uL RBC 4.24 L (4.30-5.90) m/uL Hgb 12.8 L (13.0-17.5) gm/dL Hct 37.8 L (39.0-53.0) % Plt Count 127 L (150-450) k/uL Neutrophils # (1.3-7.7) k/uL Lymphocytes # (1.0-4.8) k/uL Chloride (98-107) mmol/L Glucose (74-99) mg/dL POC Glucose (mg/dL) 129 H 130 H (70-110) mg/dL Calcium (8.4-10.2) mg/dL Crossmatch 12/13/23 12/13/23 Range/Units 02:55 02:55 WBC (3.8-10.6) k/uL RBC (4.30-5.90) m/uL Hgb (13.0-17.5) gm/dL Hct 38.4 L (39.0-53.0) % Plt Count 143 L (150-450) k/uL Neutrophils # 8.2 H (1.3-7.7) k/uL Lymphocytes # 0.9 L (1.0-4.8) k/uL Chloride 110 H (98-107) mmol/L Glucose 107 H (74-99) mg/dL POC Glucose (mg/dL) (70-110) mg/dL Calcium 8.3 L (8.4-10.2) mg/dL Crossmatch
[2023-12-13] MEDS: amLODIPine 10 MG TAB PO SCH (12:12)
--- NOTE | 2023-12-13 15:17 | P.PN ---
Subjective Progress Note Date: 12/13/23 Principal diagnosis: 1. Grade I spondylolisthesis of L3 on L4 2. L3-4 spondylosis with stenosis 3. Bilateral lower extremity radiculopathy 4. Bilateral lower extremity weakness 5. Low back pain Patient was seen at bedside this morning in the ICU lying in the semirecumbent position in recliner chair. Gonzalez is in place and dressing is present over spine. Patient says he is looking forward to work with therapy later today. Patient says he is not having any significant weakness or difficulty with range of motion in the right lower extremity since surgery is performed. Patient says he had been having a lot of issues with this for about the past year prior to surgery. Patient says he is already seeing improvement since surgery. Patient says he has had a few episodes of nausea and surgery. Patient denies chest pain, fever, shortness of breath, change in vision, loss of bowel/bladder control. Objective - Vital Signs Vital signs: Vital Signs Temp 99.0 F 12/13/23 08:00 Pulse 61 12/13/23 10:00 Resp 12 12/13/23 10:00 BP 102/53 12/13/23 10:00 Pulse Ox 96 12/13/23 10:00 FiO2 Intake & Output 12/12/23 12/13/23 12/13/23 18:59 06:59 18:59 Intake Total 3152 790 1160 Output Total 1950 2075 430 Balance 1202 -1285 730 Weight 94.9 kg Intake: IV 2752 1060 0.9 1060 Intake, IV Titration 90 290 0 Amount Lactated Ringers 1,000 ml 40 240 0 @ 0 mls/hr IV .[facility] Rx#:[id number] ceFAZolin 2 gm In Sodium 50 50 Chloride 0.9% 50 ml @ 100 mls/hr IVPB Q8HR [facility] Rx# :[id number] Oral 500 100 Blood Product 310 Rc As-1 Unit 310 [id number] Output: Drainage 120 250 220 Right Posterior Back 120 250 220 Urine 1030 1825 210 Estimated Blood Loss 800 Other: Voiding Method Indwelling Catheter Indwelling Catheter Indwelling Catheter ABP, PAP, CO, CI - Last Documented Arterial Blood Pressure 134/53 - Exam Inspection: Dressing appears to be clean, dry, intact. Negative for any active drainage. [place] up here to be well aligned and intact. Sensation: There is some generalized numbness and tingling in the right lower extremity. Sensation is equal, symmetric, bilaterally intact throughout the rest of the extremities Palpation: There is some generalized tenderness to palpation directly over incision over spine. Some generalized tenderness to palpation in paralumbar and parathoracic region. Nontender to palpation throughout rest of exam. Range of motion: Patient has full range of motion throughout bilateral upper extremities on exam. There is some limited range of motion in the bilateral hips and flexed extension secondary to referred pain and stiffness low back. Jose mcdonald does have good range of motion throughout bilateral knees and ankles and flexion/extension and dorsiflexion/plantar flexion bilaterally. Motor: 5/5 in all major motor is in bilateral upper extremities. 4+/5 in all major motor groups in left lower extremity. 4/5 in all major motor groups right lower extremity. Neurovascular: Radial pulse intact, 2+ bilaterally. Cap refill under 3 seconds in digits of UE Special tests: Negative Homans bilaterally. Negative clonus bilaterally. Negative Nila bilaterally. - Labs CBC & Chem 7: 12/13/23 02:55 12/13/23 02:55 Labs: Abnormal Lab Results - Last 24 Hours (Table) 12/06/23 12/12/23 12/12/23 Range/Units 15:25 14:50 14:55 WBC 14.0 H (3.8-10.6) k/uL RBC 3.95 L (4.30-5.90) m/uL Hgb 11.9 L (13.0-17.5) gm/dL Hct 35.1 L (39.0-53.0) % Plt Count (150-450) k/uL Neutrophils # (1.3-7.7) k/uL Lymphocytes # (1.0-4.8) k/uL Chloride (98-107) mmol/L Glucose (74-99) mg/dL POC Glucose (mg/dL) 151 H (70-110) mg/dL Calcium (8.4-10.2) mg/dL Crossmatch See Detail 12/12/23 12/12/23 12/12/23 Range/Units 16:49 20:00 23:43 WBC (3.8-10.6) k/uL RBC 4.24 L (4.30-5.90) m/uL Hgb 12.8 L (13.0-17.5) gm/dL Hct 37.8 L (39.0-53.0) % Plt Count 127 L (150-450) k/uL Neutrophils # (1.3-7.7) k/uL Lymphocytes # (1.0-4.8) k/uL Chloride (98-107) mmol/L Glucose (74-99) mg/dL POC Glucose (mg/dL) 129 H 130 H (70-110) mg/dL Calcium (8.4-10.2) mg/dL Crossmatch 12/13/23 12/13/23 12/13/23 Range/Units 02:55 02:55 07:27 WBC (3.8-10.6) k/uL RBC (4.30-5.90) m/uL Hgb (13.0-17.5) gm/dL Hct 38.4 L (39.0-53.0) % Plt Count 143 L (150-450) k/uL Neutrophils # 8.2 H (1.3-7.7) k/uL Lymphocytes # 0.9 L (1.0-4.8) k/uL Chloride 110 H (98-107) mmol/L Glucose 107 H (74-99) mg/dL POC Glucose (mg/dL) 122 H (70-110) mg/dL Calcium 8.3 L (8.4-10.2) mg/dL Crossmatch Assessment and Plan Assessment: 1. Grade I spondylolisthesis of L3 on L4 2. L3-4 spondylosis with stenosis 3. Bilateral lower extremity radiculopathy 4. Bilateral lower extremity weakness 5. Low back pain - Postop day #1 status post [id number] decompression and fusion Plan: 1. Grade I spondylolisthesis of L3 on L4; L3-4 spondylosis with stenosis; Bilateral lower extremity radiculopathy; Bilateral lower extremity weakness; Low back pain - surgery performed yesterday, 12/12/2023. Continue pain medication and continue Gonzalez at this time. Maintain drain to full section at this time. Continue work with therapy daily and perform range of motion exercises while resting in bed. We will continue to follow patient during stay in hospital. Discharge planning pending. 2. Appreciate medical management 3. Pain management - [place]; Flexeril; gabapentin; Tylenol 4. DVT prophylaxis - mechanical 5. GI prophylaxis - senna; milk of magnesia 6. PT/OT - weightbearing as tolerated with walker and assistance and brace on while up and about 7. Encourage incentive spirometer use 8. Discharge planning - pending Time with Patient: Less than 30
[2023-12-13] MEDS: GABAPENTIN 300 MG CAP PO SCH (16:12)
--- NOTE | 2023-12-14 11:09 | P.PN ---
Subjective Progress Note Date: 12/14/23 I am seeing this patient in consultation today 12/13/2023 in the intensive care unit after an elective T10 to pelvis decompression and fusion. Patient is a 73-year-old white male with past medical history significant for severe multilevel lumbar spondylosis/stenosis with radiculopathy symptoms, asthma, GIOVANNA without CPAP, hyperlipidemia, hypertension, and coronary artery disease. Patient was brought in yesterday for an elective T10 to pelvis decompression and fusion with Dr. Argueta. Patient's perioperative period was relatively unremarkable. He reportedly had a brief episode of bradycardia and associated hypotension intraoperatively. It was felt the patient to be best monitored in the intensive care unit. He was extubated in recovery without incident. Patient is currently resting comfortably in bed, on 2 L/min nasal cannula, in no acute distress. Chest x-ray does not show any acute cardiopulmonary process. He does report some mild postsurgical lumbar back pain which is controlled with as needed Dilaudid and [place]'s. Bilateral lower extremities have good strength. There is some right lower extremity numbness, which is chronic, and not worse from baseline. No bowel incontinence. Patient does have an indwelling urinary catheter draining adequate amounts of urine. Heart rhythm on bedside monitor appears normal sinus with a rate of 70 bpm. Blood pressure is now normotensive. Not requiring any vasopressors. Estimated blood loss intraoperatively was approximately 900 mL. Patient did receive 1 unit PRBC and 2.7 L of crystalloid fluid. Most recent postoperative CBC includes a WBC count of 10.5, hemoglobin 12.8, hematocrit 37.8, and platelets 127. There is a Hemovac with a total of 370 mL of sanguinous output reported. Vital signs are stable. The patient is seen today December 14, 2023 in follow-up in the intensive care unit. He is currently sitting up in bed. Awake and alert in no acute distress. He is maintaining good O2 saturations in the 90s on 2 L/min per nasal cannula. He has lactated Ringer's at 20 mph. He is remaining in sinus rhythm. Follow-up CT scan of the lumbar spine revealed postsurgical changes without evidence of immediate postoperative complication. He is status post 1 unit of packed red blood cells this admission. [place] 13.2. His pain is adequately controlled. Objective - Vital Signs Vital signs: Vital Signs Temp 99.3 F 12/14/23 08:00 Pulse 88 12/14/23 09:00 Resp 18 12/14/23 09:00 BP 133/75 12/14/23 09:00 Pulse Ox 94 L 12/14/23 09:00 FiO2 Intake & Output 12/13/23 12/14/23 12/14/23 18:59 06:59 18:59 Intake Total 1320 240 240 Output Total 1400 940 400 Balance -80 -700 -160 Weight 97.9 kg Intake: IV 1220 240 40 0.9 1220 240 40 Intake, IV Titration 0 Amount Lactated Ringers 1,000 ml 0 @ 0 mls/hr IV .[facility] Rx#:[id number] Oral 100 200 Output: Drainage 320 Right Posterior Back 320 Urine 1080 940 400 Other: Voiding Method Indwelling Catheter Indwelling Catheter Indwelling Catheter ABP, PAP, CO, CI - Last Documented Arterial Blood Pressure 134/53 - Exam GENERAL EXAM: Alert, pleasant 73-year-old male, on 2 L nasal cannula, fairly comfortable in no apparent distress. HEAD: Normocephalic and atraumatic EYES: Normal reaction of pupils, equal size. NOSE: Clear with pink turbinates. THROAT: No erythema or exudates. NECK: No masses, no JVD. CHEST: No chest wall deformity. LUNGS: Equal air entry with no crackles, wheeze, rhonchi or dullness. No conversational dyspnea. CVS: S1 and S2 normal with no audible murmur, regular rhythm. No extra heart sounds ABDOMEN: No hepatosplenomegaly, active bowel sounds, no guarding or rigidity. SPINE: No scoliosis or deformity SKIN: No rashes CENTRAL NERVOUS SYSTEM: No focal deficits, tone is normal in all 4 extremities. Bilateral upper extremity strength graded 5/5. Bilateral lower extremity strength graded 5/5. Ambulation was deferred. Patellar DTRs 2+ bilaterally. No clonus. Lower extremity sensation equal. EXTREMITIES: There is no peripheral edema, clubbing, or cyanosis. Peripheral pulses are intact. - Labs CBC & Chem 7: 12/13/23 02:55 12/13/23 02:55 Assessment and Plan Assessment: Severe multilevel thoracolumbar spondylosis/stenosis with radiculopathy and neurogenic claudication status post-operative day #2 following a T10 to pelvis decompression and fusion. Acute blood loss anemia, expected outcome of surgery, status post 1 unit PRBC transfusion Possible vasovagal episode with hypotension and bradycardia, stabilized History of hypertension History of hyperlipidemia History of coronary disease History of asthma, stable History of obstructive sleep apnea without CPAP Plan: The patient was seen and evaluated Labs and medications reviewed No further near syncopal episodes Titrate down the FiO2 as tolerated Cleared for transfer out of the intensive care unit We will continue to follow I have personally seen and examined the patient, performed the documentation and the assessment and plan as written. Number of minutes spent on the visit: 10.
--- NOTE | 2023-12-14 14:29 | P.PN ---
Subjective Progress Note Date: 12/14/23 Subjective: No new complaints today. Pt is doing well, progressing well post-op. Gen: In NAD, non-toxic HEENT: normocephalic, atraumatic, hearing acuity is intant, mucous membranes moist CVS: perfusing all extremities well, no pitting edema, Respiratory: symmetric chest expansion, no accessory muscle use, GI: soft, NTTP, ND, : no suprapubic tenderness, no CVA tenderness MSK/Derm: no rashes, cyanosis Neuro: CN II-XII intact, no motor weakness, Psych: cooperative, euthymic mood, judgment and insight is intact Assessment and Plan: Status post T10 to pelvis decompression and fusion Leukocytosis, anticipated outcome of surgery, resolved Acute blood loss anemia, status post 1 unit of PRBCs, anticipated outcome of surgery, resolved -Pain control with oral Tylenol scheduled, Flexeril 3 times daily as needed, oral [place] as needed, IV Dilaudid as needed, monitor for sedation -PPI for GI prophylaxis -Milk of magnesia as needed for constipation -Bowel regimen per Ortho spine surgery -SCDs for DVT prophylaxis -Currently being monitored in the medical ICU Hypertensioncontinue home amlodipine 10 mg daily and lisinopril 20 twice daily Goutcontinue allopurinol 100 mg daily BPHcontinue tamsulosin 0.4 mg twice daily CAD, holding aspirin, restart when okay per Ortho spine surgery Dyslipidemiacontinue pravastatin 80 mg nightly Thank you for allowing us to participate in the care of this pleasant patient. Do not hesitate to contact us with questions. Someone can be reached from the [facility] hospitalist group all hours of the day at [phone] or via perfect serve. Objective - Vital Signs Vital signs: Vital Signs Temp 99.3 F 12/14/23 08:00 Pulse 88 12/14/23 09:00 Resp 18 12/14/23 09:00 BP 133/75 12/14/23 09:00 Pulse Ox 94 L 12/14/23 09:00 FiO2 Intake & Output 12/13/23 12/14/23 12/14/23 18:59 06:59 18:59 Intake Total 1320 240 240 Output Total 1400 940 400 Balance -80 -700 -160 Weight 97.9 kg Intake: IV 1220 240 40 0.9 1220 240 40 Intake, IV Titration 0 Amount Lactated Ringers 1,000 ml 0 @ 0 mls/hr IV .[facility] Rx#:[id number] Oral 100 200 Output: Drainage 320 Right Posterior Back 320 Urine 1080 940 400 Other: Voiding Method Indwelling Catheter Indwelling Catheter Indwelling Catheter ABP, PAP, CO, CI - Last Documented Arterial Blood Pressure 134/53 - Labs CBC & Chem 7: 12/13/23 02:55 12/13/23 02:55 Labs: Abnormal Lab Results - Last 24 Hours (Table) 12/12/23 Range/Units 12:00 ABG pH 7.34 L (7.35-7.45) ABG pO2 292 H (83-108) mmHg ABG O2 Saturation 99.2 H (94-97) % ABG Glucose 180 H (75-99) mg/dL Hemoglobin 12.0 L (13.0-17.5) gm/dL Arterial Blood Glucose 180 H (75-99) mg/dL
--- NOTE | 2023-12-14 14:52 | P.PN ---
Subjective Progress Note Date: 12/14/23 Principal diagnosis: 1. Grade I spondylolisthesis of L3 on L4 2. L3-4 spondylosis with stenosis 3. Bilateral lower extremity radiculopathy 4. Bilateral lower extremity weakness 5. Low back pain Patient was seen at bedside this afternoon with family present during counter and physical therapy/occupational therapy present. Patient says he just finished standing up at bedside near chair. He says he did get a little bit lightheaded when he was doing this. Patient says he still has Gonzalez in place. Says his right lower extremity is feeling much better than it was prior to surgery, however, patient says he is still having some weakness and a little bit of numbness. Patient denies anesthesia finished at this time. Patient denies chest pain, fever, shortness of breath, change in vision, loss of bowel/bladder control. Objective - Vital Signs Vital signs: Vital Signs Temp 98.2 F 12/14/23 14:27 Pulse 88 12/14/23 09:00 Resp 18 12/14/23 14:27 BP 140/74 12/14/23 14:27 Pulse Ox 95 12/14/23 14:27 FiO2 Intake & Output 12/13/23 12/14/23 12/14/23 18:59 06:59 18:59 Intake Total 1320 240 240 Output Total 1400 940 600 Balance -80 -700 -360 Weight 97.9 kg Intake: IV 1220 240 40 0.9 1220 240 40 Intake, IV Titration 0 Amount Lactated Ringers 1,000 ml 0 @ 0 mls/hr IV .[facility] Rx#:[id number] Oral 100 200 Output: Drainage 320 Right Posterior Back 320 Urine 1080 940 600 Other: Voiding Method Indwelling Catheter Indwelling Catheter Indwelling Catheter ABP, PAP, CO, CI - Last Documented Arterial Blood Pressure 134/53 - Exam Inspection: Dressing present over thoracolumbar spine was in spine. New dressing placed over incision.. Negative for any active drainage. [place] up here to be well aligned and intact. Sensation: There is some generalized numbness and tingling in the right lower extremity. Sensation is equal, symmetric, bilaterally intact throughout the rest of the extremities Palpation: There is some generalized tenderness to palpation directly over incision over spine. Some generalized tenderness to palpation in paralumbar and parathoracic region. Nontender to palpation throughout rest of exam. Range of motion: Patient has full range of motion throughout bilateral upper extremities on exam. There is some limited range of motion in the bilateral hips and flexed extension secondary to referred pain and stiffness low back. Patient does have good range of motion throughout bilateral knees and ankles and flexion/extension and dorsiflexion/plantar flexion bilaterally. Motor: 5/5 in all major motor is in bilateral upper extremities. 4+/5 in all major motor groups in left lower extremity. 4/5 in all major motor groups right lower extremity. Neurovascular: Radial pulse intact, 2+ bilaterally. Cap refill under 3 seconds in digits of UE Special tests: Negative Homans bilaterally. Negative clonus bilaterally. Negative Nila bilaterally. - Labs CBC & Chem 7: 12/13/23 02:55 12/13/23 02:55 Labs: Abnormal Lab Results - Last 24 Hours (Table) 12/12/23 Range/Units 12:00 ABG pH 7.34 L (7.35-7.45) ABG pO2 292 H (83-108) mmHg ABG O2 Saturation 99.2 H (94-97) % ABG Glucose 180 H (75-99) mg/dL Hemoglobin 12.0 L (13.0-17.5) gm/dL Arterial Blood Glucose 180 H (75-99) mg/dL Assessment and Plan Assessment: 1. Grade I spondylolisthesis of L3 on L4 2. L3-4 spondylosis with stenosis 3. Bilateral lower extremity radiculopathy 4. Bilateral lower extremity weakness 5. Low back pain - Postop day #2 status post [id number] decompression and fusion Plan: 1. Grade I spondylolisthesis of L3 on L4; L3-4 spondylosis with stenosis; Bilateral lower extremity radiculopathy; Bilateral lower extremity weakness; Low back pain - surgery performed 12/12/2023. Continue pain medication and continue Gonzalez at this time. Maintain drain to full section at this time. Continue work with therapy daily and perform range of motion exercises while resting in bed. We will continue to follow patient during stay in hospital. Surgical dressing changed at bedside this afternoon. [place] appear to be well aligned and intact. Negative for any active drainage. Stable from orthopedic standpoint for transfer to 3 S or 4 S. Discharge planning pending. 2. Appreciate medical management 3. Pain management - [place]; Flexeril; gabapentin; Tylenol 4. DVT prophylaxis - mechanical 5. GI prophylaxis - senna; milk of magnesia 6. PT/OT - weightbearing as tolerated with walker and assistance and brace on while up and about 7. Encourage incentive spirometer use 8. Discharge planning - pending Time with Patient: Less than 30
[2023-12-14] MEDS: SENNOSIDES-DOCUSATE SODIUM 1 EACH TAB PO PRN (16:17)
[2023-12-15 04:46] LABS: Glucose,Whole Blood 90 mg/dL (70-110)
[2023-12-15 05:57] LABS: Glucose,Whole Blood 96 mg/dL (70-110)
[2023-12-15 11:59] LABS: Glucose,Whole Blood 85 mg/dL (70-110)
--- NOTE | 2023-12-15 12:04 | P.PN ---
Subjective Progress Note Date: 12/15/23 Principal diagnosis: 1. Grade I spondylolisthesis of L3 on L4 2. L3-4 spondylosis with stenosis 3. Bilateral lower extremity radiculopathy 4. Bilateral lower extremity weakness 5. Low back pain Patient was seen at bedside this morning on 4 S. area and patient was lying semirecumbent position. Patient says Gonzalez was removed yesterday afternoon or early this morning. Patient says she has urinated several times since Gonzalez was removed. Patient says he did attempt to stand up at the edge of the bed this morning with therapy however, when patient went from lying down to sitting he became a little bit lightheaded and his blood pressure dropped. Medicine working on this and increasing fluids and ordering CBC. Patient did discuss with pillowcase folder possible discharge to inpatient rehab. Patient is looking forward to seeing for possible inpatient rehab placement. Patient says he has been passing gas, however, he says he has not had a bowel movement yet. Patient denies chest pain, fever, shortness breath, vomiting, change in vision, loss of bowel/bladder control. Objective - Vital Signs Vital signs: Vital Signs Temp 98.4 F 12/15/23 06:30 Pulse 88 12/15/23 06:30 Resp 18 12/15/23 06:30 BP 150/75 12/15/23 06:30 Pulse Ox 95 12/15/23 06:30 FiO2 Intake & Output 12/14/23 12/15/23 12/15/23 18:59 06:59 18:59 Intake Total 240 Output Total 875 1010 210 Balance -635 -1010 -210 Intake: IV 40 0.9 40 Oral 200 Output: Drainage 110 Right Posterior Back 110 Urine 875 900 210 Other: Voiding Method Indwelling Catheter Urinal ABP, PAP, CO, CI - Last Documented Arterial Blood Pressure 134/53 - Exam Inspection: Dressing present over thoracolumbar spine was in spine. Dressing appears to be clean, dry, intact. Negative for any active drainage. [place] appear to be well aligned and intact. Sensation: There is some generalized numbness and tingling in the right lower extremity. Sensation is equal, symmetric, bilaterally intact throughout the rest of the extremities Palpation: There is some generalized tenderness to palpation directly over incision over spine. Some generalized tenderness to palpation in paralumbar and parathoracic region. Nontender to palpation throughout rest of exam. Range of motion: Patient has full range of motion throughout bilateral upper extremities on exam. There is some limited range of motion in the bilateral hips and flexed extension secondary to referred pain and stiffness low back. Patient does have good range of motion throughout bilateral knees and ankles and flexion/extension and dorsiflexion/plantar flexion bilaterally. Motor: 5/5 in all major motor is in bilateral upper extremities. 4+/5 in all major motor groups in left lower extremity. 4/5 in all major motor groups right lower extremity. Neurovascular: Radial pulse intact, 2+ bilaterally. Cap refill under 3 seconds in digits of UE Special tests: Negative Homans bilaterally. Negative clonus bilaterally. Negative Nila bilaterally. - Labs CBC & Chem 7: 12/13/23 02:55 12/13/23 02:55 Labs: Abnormal Lab Results - Last 24 Hours (Table) 12/12/23 Range/Units 12:00 ABG pH 7.34 L (7.35-7.45) ABG pO2 292 H (83-108) mmHg ABG O2 Saturation 99.2 H (94-97) % ABG Glucose 180 H (75-99) mg/dL Hemoglobin 12.0 L (13.0-17.5) gm/dL Arterial Blood Glucose 180 H (75-99) mg/dL Assessment and Plan Assessment: 1. Grade I spondylolisthesis of L3 on L4 2. L3-4 spondylosis with stenosis 3. Bilateral lower extremity radiculopathy 4. Bilateral lower extremity weakness 5. Low back pain - Postop day #3 status post [id number] decompression and fusion Plan: 1. Grade I spondylolisthesis of L3 on L4; L3-4 spondylosis with stenosis; Bilateral lower extremity radiculopathy; Bilateral lower extremity weakness; Low back pain - surgery performed 12/12/2023. Continue pain medication at this time. Maintain drain to full section at this time. Continue work with therapy daily and perform range of motion exercises while resting in bed. We will continue to follow patient during stay in hospital. Surgical dressing appears to be clean, dry, intact. Assess daily. Negative for any active drainage. Consult placed for inpatient rehab. Awaiting evaluation for possible inpatient rehab. We'll continue to follow patient during stay in hospital. 2. Appreciate medical management 3. Pain management - [place]; Flexeril; gabapentin; Tylenol 4. DVT prophylaxis - mechanical 5. GI prophylaxis - senna; milk of magnesia 6. PT/OT - weightbearing as tolerated with walker and assistance and brace on while up and about 7. Encourage incentive spirometer use 8. Discharge planning - pending. Consult placed for inpatient rehab. Awaiting evaluation for possible inpatient rehab. Time with Patient: Less than 30
--- NOTE | 2023-12-15 12:12 | P.CONS ---
History of Present Illness - Reason for Consult Consult date: 12/15/23 rehab recommendations - Chief Complaint lumbar myelopathy s/p fusion - History of Present Illness Mr Parviz Cota is a 73 y/o right handed male who is retired, lives with his in a ranch style home with 10 YOAN, 1 HR. He ambulates with a 4ww, independent with basic ADLs, can assist as needed. Drives. Patient presented to the hospital on 12/11/23 for a planned surgery with Dr Sridhar caruso for Lumbar spondylolisthesis and spondylosis with myelopathy, stenosis, and bilateral lumbar radiculopathy. On 12/12/23, he underwent A [id number] decompression and fusion was recommended. Intraoperatively he had a brief episode of bradycardia and hypotension. Post operatively he did have anemia, was transfusioned 1 unit PRBCs. PM&R consulted for rehab recommendations, patient needing min assist with UB dressing, supervision with grooming, total assist with toileting, bed mobility max assist x 2, transfers min-mod assist with walker, gait 3 ft min assist 12/15/23: Patient states he is doing 'alright'. He admits he still has quite a bit of back pain, currently has wound drain present. He denies CP, SOB, and abdominal pain. He is on 2 liters of O2 via NC, not on home O2. He has not had a BM since 12/11/23, is passing flatus, denies nausea. He denies issues with urination. He admits to dizziness when changing position or sitting up. He has right greater than left leg pain which is what he had prior to surgery, both legs feel week, but he is able to move his feet and toes which he struggled with before surgery. He has numbness and burning from the knee down to his big toe wh ich he had prior to surgery. Review of Systems reviewed, negative unless stated above in HPI. Past Medical History Past Medical History: Asthma, GERD/Reflux, Hyperlipidemia, Hypertension, Myocardial Infarction ([place]), Prostate Disorder, Sleep Apnea/CPAP/BIPAP Additional Past Medical History / Comment(s): Enlarged prostate, does not use C- PAP, Vertigo, numbness at times to rt leg. Last Myocardial Infarction Date:: 1998 History of Any Multi-Drug Resistant Organisms: None Reported Past Surgical History: No Surgical Hx Reported Additional Past Surgical History / Comment(s): Repair devitated septum. Past Anesthesia/Blood Transfusion Reactions: No Reported Reaction, Motion Sickn ess Smoking Status: Never smoker - Past Family History Father Family Medical History: No Reported History Medications and Allergies Home Medications Medication Instructions Recorded Confirmed Type Loratadine [Claritin] 10 mg PO DAILY PRN 07/14/18 12/12/23 History Omeprazole [PriLOSEC] 20 mg PO QAM 07/14/18 12/12/23 History Pravastatin Sodium 80 mg PO HS 07/14/18 12/12/23 History allopurinoL [Zyloprim] 100 mg PO DAILY 07/14/18 12/12/23 History amLODIPine [Norvasc] 10 mg PO DAILY@1200 07/14/18 12/12/23 History lisinopriL [Prinivil] 20 mg PO BID 07/14/18 12/12/23 History Albuterol Inhaler [Ventolin Hfa 1 - 2 puff INHALATION Q6H PRN 12/07/23 12/12/23 History Inhaler] Aspirin 81 mg PO DAILY 12/07/23 12/12/23 History Calcium Carbonate/Vitamin D3 1 each PO BID 12/07/23 12/12/23 History [Calcium 500 mg-Vit D3 5 mcg (200 Unit)] Magnesium(Unk Dose) 1 dose PO DAILY 12/07/23 12/12/23 History Meclizine HCl 12.5 mg PO TID PRN 12/07/23 12/12/23 History Nitroglycerin Sl Tabs [Nitrostat] 0.4 mg SUBLINGUAL Q5M PRN 12/07/23 12/12/23 H istory Tamsulosin HCl [Flomax] 0.4 mg PO BID 12/07/23 12/12/23 History Allergies Allergy/AdvReac Type Severity Reaction Status Date / Time No Known Allergies Allergy Verified 12/12/23 05:53 Physical Exam Vitals: Vital Signs Temp Pulse Resp BP Pulse Ox 12/15/23 06:30 98.4 F 88 18 150/75 95 12/15/23 02:00 98.5 F 90 136/77 95 12/15/23 00:00 98.8 F 88 16 142/75 90 L 12/14/23 20:00 98.7 F 89 14 130/66 92 L 12/14/23 14:27 98.2 F 18 140/74 95 Intake and Output 12/14/23 12/15/23 12/15/23 22:59 06:59 14:59 Intake Total 0 Output Total 385 900 210 Balance -385 -900 -210 Intake: IV 0 0.9 0 Output: Drainage 110 Right Posterior Back 110 Urine 275 900 210 Other: Voiding Method Urinal EXAM; General: WDWN, elderly male, laying in bed, NAD Head: Normocephalic, atraumatic. Eyes: Symmetric Ears: Symmetric. Hearing within normal limits. Mouth: Clear. Cardiac: Calves supple, non tender, no edema, compression stockings on Lungs: Breathing comfortably on 3 liters O2 NC. Chest symmetric. Abdomen: Soft, nontender. Extremities: Arthritic changes consistent with age. Neurological: Alert and oriented x . Speech is clear and fluent without paraphasic errors Cranial nerves: CN II-XII grossly intact. Sensation: Intact and symmetrical limbs except decreased stocking type distribution of right leg Musculoskeletal: ROM WFL EXCEPT: bilateral HF and KE weakness- pain limiting MMT UE Sh Abd EE EF FABD WE HG Right 5- 5 5 5 Left 5- 5 5 4+ MMT LE HF KE DF EHL Right 3- 3- 4 4 Left 3- 3- 4+ 4+ Reflexes Biceps Triceps Brachioradialis Patella Achilles Babinski Hoffmans Right 2 2 2 1 1 - + Left 2 2 2 2 1 - + Skin: Skin intact where visible to head, neck, and bilateral upper and lower extremities EXCEPT: back incision- not visualized- drain present, peripheral IV Psych: Calm, cooperative Results CBC & Chem 7: 12/13/23 02:55 12/13/23 02:55 Labs: Abnormal Lab Results - Last 24 Hours (Table) 12/12/23 Range/Units 12:00 ABG pH 7.34 L (7.35-7.45) ABG pO2 292 H (83-108) mmHg ABG O2 Saturation 99.2 H (94-97) % ABG Glucose 180 H (75-99) mg/dL Hemoglobin 12.0 L (13.0-17.5) gm/dL Arterial Blood Glucose 180 H (75-99) mg/dL Assessment and Plan Assessment: # Lumbar spondylolisthesis and spondylosis with myelopathy, stenosis, and bilateral lumbar radiculopathy s/p [id number] decompression and fusion on 12/12/23 -back brace on when out of bed -PT/OT/TRIAL CONSULTANT # Impaired gait and ADLs secondary to above # Acute blood loss anemia s/p transfusion 1 unit. # Dizziness -12/15/23 patient complains of dizziness with position change # Bowel/bladder -12/15/23 denies issues with urination, no BM since 12/11, Recommend increasing bowel regimen # Neck stiffness/pain with positive Hoffmans -12/15/23 patient likely has some component of cervical stenosis, recommend follow up with Dr Argueta once lumbar spine has improve post surgery #Pain Management -Tylenol 650 mg Q 6 hrs prn, Flexeril 10 mg TID prn, [place] 5/325 mg Q 6 hrs prn moderate, [place] 10/325 mg Q 6 hrs prn severe pain, Gabapentin 300 mg TID, Diluadid IV prn -12/15/23 patient needs to be weaned off IV pain medications for IPR # DVT proph -scds, defer to surgical team # Comorbidities: CAD, HTN, HLD, GERD, GIOVANNA< asthma, gout, BPH, OA, [place] # Your medical dx and management Disposition: Patient is performing below is prior level of function, motivated and has good support at home. Recommending IPR for continued rehab, patient will need to decide if he wants to use VA or medicare, can plan to admit to [facility] on Monday as he is not medically stable yet for IPR. Per patient he is going to discuss with his if he wants to use VA benefits or medicare benefits primary. Social work to follow up Patient seen and examined in collaboration with Dr Quinonez Thank you for the consultation. Chandni Tsang PA-C
--- NOTE | 2023-12-15 13:37 | P.PN ---
Subjective Progress Note Date: 12/15/23 I am seeing this patient in consultation today 12/13/2023 in the intensive care unit after an elective T10 to pelvis decompression and fusion. Patient is a 73-year-old white male with past medical history significant for severe multilevel lumbar spondylosis/stenosis with radiculopathy symptoms, asthma, GIOVANNA without CPAP, hyperlipidemia, hypertension, and coronary artery disease. Patient was brought in yesterday for an elective T10 to pelvis decompression and fusion with Dr. Argueta. Patient's perioperative period was relatively unremarkable. He reportedly had a brief episode of bradycardia and associated hypotension intraoperatively. It was felt the patient to be best monitored in the intensive care unit. He was extubated in recovery without incident. Patient is currently resting comfortably in bed, on 2 L/min nasal cannula, in no acute distress. Chest x-ray does not show any acute cardiopulmonary process. He does report some mild postsurgical lumbar back pain which is controlled with as needed Dilaudid and [place]'s. Bilateral lower extremities have good strength. There is some right lower extremity numbness, which is chronic, and not worse from baseline. No bowel incontinence. Patient does have an indwelling urinary catheter draining adequate amounts of urine. Heart rhythm on bedside monitor appears normal sinus with a rate of 70 bpm. Blood pressure is now normotensive. Not requiring any vasopressors. Estimated blood loss intraoperatively was approximately 900 mL. Patient did receive 1 unit PRBC and 2.7 L of crystalloid fluid. Most recent postoperative CBC includes a WBC count of 10.5, hemoglobin 12.8, hematocrit 37.8, and platelets 127. There is a Hemovac with a total of 370 mL of sanguinous output reported. Vital signs are stable. The patient is seen today December 14, 2023 in follow-up in the intensive care unit. He is currently sitting up in bed. Awake and alert in no acute distress. He is maintaining good O2 saturations in the 90s on 2 L/min per nasal cannula. He has lactated Ringer's at 20 mph. He is remaining in sinus rhythm. Follow-up CT scan of the lumbar spine revealed postsurgical changes without evidence of immediate postoperative complication. He is status post 1 unit of packed red blood cells this admission. Gl[place]in 13.2. His pain is adequately controlled. The patient is seen today December 15, 2023 in follow-up on the regular medical floor. He is currently sitting up in bed. Awake and alert in no acute distress. He is maintaining O2 saturations in the 90s on 2 L/min per nasal cannula. No IV fluids. He did have an episode of orthostatic hypotension earlier this morning. Currently hemodynamically stable. He has been afebrile. He is status post 1 unit of packed red blood cells this admission. Most recent hemoglobin 13.2. Glucose 85. Working well with physical therapy. Objective - Vital Signs Vital signs: Vital Signs Temp 98.4 F 12/15/23 06:30 Pulse 88 12/15/23 06:30 Resp 18 12/15/23 06:30 BP 157/79 12/15/23 11:51 Pulse Ox 95 12/15/23 06:30 FiO2 Intake & Output 12/14/23 12/15/23 12/15/23 18:59 06:59 18:59 Intake Total 240 Output Total 875 1010 210 Balance -635 -1010 -210 Intake: IV 40 0.9 40 Oral 200 Output: Drainage 110 Right Posterior Back 110 Urine 875 900 210 Other: Voiding Method Indwelling Catheter Urinal ABP, PAP, CO, CI - Last Documented Arterial Blood Pressure 134/53 - Exam GENERAL EXAM: Alert, 73-year-old male, on 2 L nasal cannula, comfortable in no apparent distress. HEAD: Normocephalic and atraumatic EYES: Normal reaction of pupils, equal size. NOSE: Clear with pink turbinates. THROAT: No erythema or exudates. NECK: No masses, no JVD. CHEST: No chest wall deformity. LUNGS: Equal air entry with no crackles, wheeze, rhonchi or dullness. No conversational dyspnea. CVS: S1 and S2 normal with no audible murmur, regular rhythm. No extra heart sounds ABDOMEN: No hepatosplenomegaly, active bowel sounds, no guarding or rigidity. SPINE: No scoliosis or deformity SKIN: No rashes CENTRAL NERVOUS SYSTEM: No focal deficits, tone is normal in all 4 extremities. Bilateral upper extremity strength graded 5/5. Bilateral lower extremity strength graded 5/5. Ambulation was deferred. Patellar DTRs 2+ bilaterally. No clonus. Lower extremity sensation equal. EXTREMITIES: There is no peripheral edema, clubbing, or cyanosis. Peripheral pulses are intact. - Labs CBC & Chem 7: 12/13/23 02:55 12/13/23 02:55 Labs: Abnormal Lab Results - Last 24 Hours (Table) 12/12/23 Range/Units 12:00 ABG pH 7.34 L (7.35-7.45) ABG pO2 292 H (83-108) mmHg ABG O2 Saturation 99.2 H (94-97) % ABG Glucose 180 H (75-99) mg/dL Hemoglobin 12.0 L (13.0-17.5) gm/dL Arterial Blood Glucose 180 H (75-99) mg/dL Assessment and Plan Assessment: Severe multilevel thoracolumbar spondylosis/stenosis with radiculopathy and neurogenic claudication status post-operative day # 3 following a T10 to pelvis decompression and fusion. Acute blood loss anemia, expected outcome of surgery, status post 1 unit PRBC transfusion Possible vasovagal episode with hypotension and bradycardia, stabilized History of hypertension History of hyperlipidemia History of coronary disease History of asthma, stable History of obstructive sleep apnea without CPAP Plan: The patient was seen and evaluated Labs and medications reviewed Noted orthostatic hypotension Currently hemodynamically stable May require inpatient rehabilitation postdischarge We will continue to follow I have personally seen and examined the patient, performed the documentation and the assessment and plan as written. Number of minutes spent on the visit: 10.
--- NOTE | 2023-12-15 13:47 | P.PN ---
Subjective Progress Note Date: 12/15/23 Subjective: Pt having some dizziness and lightheadedness upon standing. Had + orthostatic vitals. Gen: In NAD, non-toxic HEENT: normocephalic, atraumatic, hearing acuity is intant, mucous membranes ramesh st CVS: perfusing all extremities well, no pitting edema, Respiratory: symmetric chest expansion, no accessory muscle use, GI: soft, NTTP, ND, : no suprapubic tenderness, no CVA tenderness MSK/Derm: no rashes, cyanosis Neuro: CN II-XII intact, no motor weakness, Psych: cooperative, euthymic mood, judgment and insight is intact Assessment and Plan: Status post T10 to pelvis decompression and fusion Leukocytosis, anticipated outcome of surgery, resolved Acute blood loss anemia, status post 1 unit of PRBCs, anticipated outcome of surgery, resolved Orthostatic Hypotension -Pain control with oral Tylenol scheduled, Flexeril 3 times daily as needed, oral Lopez as needed, IV Dilaudid as needed, monitor for sedation -PPI for GI prophylaxis -Milk of magnesia as needed for constipation -Bowel regimen per Ortho spine surgery -SCDs for DVT prophylaxis -Repeat CBC today and give additional 1L fluid bolus Hypertensioncontinue home amlodipine 10 mg daily and lisinopril 20, but reduced to daily Goutcontinue allopurinol 100 mg daily BPHcontinue tamsulosin 0.4 mg twice daily CAD, holding aspirin, restart when okay per Ortho spine surgery Dyslipidemiacontinue pravastatin 80 mg nightly Thank you for allowing us to participate in the care of this pleasant patient. Do not hesitate to contact us with questions. Someone can be reached from the [facility] hospitalist group all hours of the day at [phone] or via perfect serve. Objective - Vital Signs Vital signs: Vital Signs Temp 98.4 F 12/15/23 06:30 Pulse 88 12/15/23 06:30 Resp 18 12/15/23 06:30 BP 157/79 12/15/23 11:51 Pulse Ox 95 12/15/23 06:30 FiO2 Intake & Output 12/14/23 12/15/23 12/15/23 18:59 06:59 18:59 Intake Total 240 Output Total 875 1010 210 Balance -785 -1010 -210 Intake: IV 40 0.9 40 Oral 200 Output: Drainage 110 Right Posterior Back 110 Urine 875 900 210 Other: Voiding Method Indwelling Catheter Urinal ABP, PAP, CO, CI - Last Documented Arterial Blood Pressure 134/53 - Labs CBC & Chem 7: 12/13/23 02:55 12/13/23 02:55 Labs: Abnormal Lab Results - Last 24 Hours (Table) 12/12/23 Range/Units 12:00 ABG pH 7.34 L (7.35-7.45) ABG pO2 292 H (83-108) mmHg ABG O2 Saturation 99.2 H (94-97) % ABG Glucose 180 H (75-99) mg/dL Hemoglobin 12.0 L (13.0-17.5) gm/dL Arterial Blood Glucose 180 H (75-99) mg/dL
[2023-12-15] MEDS: LACTATED RINGERS 1,000 ML IV SCH (14:29)
[2023-12-15 15:29] LABS: Basophils % (A) 0 %; Eosinophils # (A) 0.3 k/uL (0-0.7); Eosinophils % (A) 4 %; HGB 12.2 gm/dL (13.0-17.5); Lymphocytes # (A) 1.1 k/uL (1.0-4.8); Lymphocytes % (A) 13 %; MCH 29.5 pg (25.0-35.0); MCHC 32.2 g/dL (31.0-37.0); MCV 91.5 fL (80.0-100.0); Mean Platelet Volume 8.1; Monocytes # (A) 0.5 k/uL (0-1.0); Monocytes % (A) 5 %; Neutrophils # (A) 6.6 k/uL (1.3-7.7); Neutrophils % (A) 76 %; Platelet Count 115 k/uL (150-450); RBC 4.15 m/uL (4.30-5.90); RDW 13.3 % (11.5-15.5); WBC 8.6 k/uL (3.8-10.6)
[2023-12-15 16:56] LABS: Glucose,Whole Blood 119 mg/dL (70-110)
[2023-12-15 20:49] LABS: Glucose,Whole Blood 96 mg/dL (70-110)
[2023-12-16 06:15] LABS: Glucose,Whole Blood 87 mg/dL (70-110)
[2023-12-16] MEDS: MAGNESIUM HYDROXIDE 2,400 MG/30 ML CUP PO PRN (08:58)
[2023-12-16] MEDS: lisinopriL 20 MG TAB PO SCH (08:59)
--- NOTE | 2023-12-16 11:11 | P.PN ---
Subjective Progress Note Date: 12/16/23 Principal diagnosis: 1. Grade I spondylolisthesis of L3 on L4 2. L3-4 spondylosis with stenosis 3. Bilateral lower extremity radiculopathy 4. Bilateral lower extremity weakness 5. Low back pain Patient was seen at bedside this morning on 4 S. patient was lying semirecumbent position. Patient says she has urinated several times since Gonzalez was removed. Patient says he is looking forward to working with therapy today. Patient is also hoping to take some more medication to try and have a bowel movement. Patient did meet with PMR yesterday and planning on transferred to [facility] for inpatient rehab on Monday. Patient says he has been passing gas, but has not had a bowel movement yet. Patient denies chest pain, fever, shortness breath, vomiting, change in vision, loss of bowel/bladder control. Objective - Vital Signs Vital signs: Vital Signs Temp 97.7 F 12/16/23 02:00 Pulse 79 12/16/23 02:00 Resp 16 12/16/23 02:00 BP 139/79 12/16/23 02:00 Pulse Ox 97 12/16/23 02:00 FiO2 Intake & Output 12/15/23 12/16/23 12/16/23 18:59 06:59 18:59 Intake Total 500 Output Total 1210 1530 Balance -1210 -1030 Intake: Oral 500 Output: Drainage 80 Right Posterior Back 80 Urine 1210 1450 ABP, PAP, CO, CI - Last Documented Arterial Blood Pressure 134/53 - Exam Inspection: Dressing present over thoracolumbar spine was in spine. Dressing appears to be intact. Minimal spotting. Negative for any active drainage. [place] appear to be well aligned and intact. Sensation: There is some generalized numbness and tingling in the right lower extremity. Sensation is equal, symmetric, bilaterally intact throughout the rest of the extremities Palpation: There is some generalized tenderness to palpation directly over incision over spine. Some generalized tenderness to palpation in paralumbar and parathoracic region. Nontender to palpation throughout rest of exam. Range of motion: Patient has full range of motion throughout bilateral upper extremities on exam. There is some limited range of motion in the bilateral hips and flexed extension secondary to referred pain and stiffness low back. Patient does have good range of motion throughout bilateral knees and ankles and flexion/extension and dorsiflexion/plantar flexion bilaterally. Motor: 5/5 in all major motor is in bilateral upper extremities. 4+/5 in all major motor groups in left lower extremity. 4/5 in all major motor groups right lower extremity. Neurovascular: Radial pulse intact, 2+ bilaterally. Cap refill under 3 seconds in digits of UE Special tests: Negative Homans bilaterally. Negative clonus bilaterally. Negative Nila bilaterally. - Labs CBC & Chem 7: 12/15/23 15:17 12/13/23 02:55 Labs: Abnormal Lab Results - Last 24 Hours (Table) 12/15/23 12/15/23 Range/Units 15:17 16:55 RBC 4.15 L (4.30-5.90) m/uL Hgb 12.2 L (13.0-17.5) gm/dL Hct 38.0 L (39.0-53.0) % Plt Count 115 L (150-450) k/uL POC Glucose (mg/dL) 119 H (70-110) mg/dL Assessment and Plan Assessment: 1. Grade I spondylolisthesis of L3 on L4 2. L3-4 spondylosis with stenosis 3. Bilateral lower extremity radiculopathy 4. Bilateral lower extremity weakness 5. Low back pain - Postop day #4 status post [id number] decompression and fusion Plan: 1. Grade I spondylolisthesis of L3 on L4; L3-4 spondylosis with stenosis; Bilateral lower extremity radiculopathy; Bilateral lower extremity weakness; Low back pain - surgery performed 12/12/2023. Continue pain medication at this time. Maintain drain to full section at this time. Continue work with therapy daily and perform range of motion exercises while resting in bed. We will continue to follow patient during stay in hospital. Surgical dressing appears to be clean, dry, intact. Assess daily. Negative for any active drainage. PMR saw patient and planning for discharge to [facility] on Monday. We'll continue to follow patient during stay in hospital. 2. Appreciate medical management 3. Pain management - [place]; Flexeril; gabapentin; Tylenol 4. DVT prophylaxis - mechanical 5. GI prophylaxis - senna; milk of magnesia 6. PT/OT - weightbearing as tolerated with walker and assistance and brace on while up and about 7. Encourage incentive spirometer use 8. Discharge planning - plan for [facility] inpatient rehab on Monday Time with Patient: Less than 30
[2023-12-16 11:56] LABS: Glucose,Whole Blood 94 mg/dL (70-110)
--- NOTE | 2023-12-16 12:26 | P.PN ---
Subjective Progress Note Date: 12/16/23 I am seeing this patient in consultation today 12/13/2023 in the intensive care unit after an elective T10 to pelvis decompression and fusion. Patient is a 73-year-old white male with past medical history significant for severe multilevel lumbar spondylosis/stenosis with radiculopathy symptoms, asthma, GIOVANNA without CPAP, hyperlipidemia, hypertension, and coronary artery disease. Patient was brought in yesterday for an elective T10 to pelvis decompression and fusion with Dr. Argueta. Patient's perioperative period was relatively unremarkable. He reportedly had a brief episode of bradycardia and associated hypotension intraoperatively. It was felt the patient to be best monitored in the intensive care unit. He was extubated in recovery without incident. Patient is currently resting comfortably in bed, on 2 L/min nasal cannula, in no acute distress. Chest x-ray does not show any acute cardiopulmonary process. He does report some mild postsurgical lumbar back pain which is controlled with as needed Dilaudid and [place]'s. Bilateral lower extremities have good strength. There is some right lower extremity numbness, which is chronic, and not worse from baseline. No bowel incontinence. Patient does have an indwelling urinary catheter draining adequate amounts of urine. Heart rhythm on bedside monitor appears normal sinus with a rate of 70 bpm. Blood pressure is now normotensive. Not requiring any vasopressors. Estimated blood loss intraoperatively was approximately 900 mL. Patient did receive 1 unit PRBC and 2.7 L of crystalloid fluid. Most recent postoperative CBC includes a WBC count of 10.5, hemoglobin 12.8, hematocrit 37.8, and platelets 127. There is a Hemovac with a total of 370 mL of sanguinous output reported. Vital signs are stable. The patient is seen today December 14, 2023 in follow-up in the intensive care unit. He is currently sitting up in bed. Awake and alert in no acute distress. He is maintaining good O2 saturations in the 90s on 2 L/min per nasal cannula. He has lactated Ringer's at 20 mph. He is remaining in sinus rhythm. Follow-up CT scan of the lumbar spine revealed postsurgical changes without evidence of immediate postoperative complication. He is status post 1 unit of packed red blood cells this admission. Globin 13.2. His pain is adequately controlled. The patient is seen today December 15, 2023 in follow-up on the regular medical floor. He is currently sitting up in bed. Awake and alert in no acute distress. He is maintaining O2 saturations in the 90s on 2 L/min per nasal cannula. No IV fluids. He did have an episode of orthostatic hypotension earlier this morning. Currently hemodynamically stable. He has been afebrile. He is status post 1 unit of packed red blood cells this admission. Most recent hemoglobin 13.2. Glucose 85. Working well with physical therapy. The patient is seen today December 16, 2023 in follow-up on the regular medical floor. He is currently resting comfortably in bed. Awake and alert in no acute distress. He is maintaining good O2 saturations in the 90s on 2 L/min per nasal cannula. No IV fluids. He is working well with physical therapy. Plan is for inpatient rehabilitation on Monday. Glucose 94. Pain is well-controlled. Objective - Vital Signs Vital signs: Vital Signs Temp 97.8 F 12/16/23 07:04 Pulse 78 12/16/23 08:59 Resp 17 12/16/23 07:04 BP 144/79 12/16/23 12:08 Pulse Ox 98 12/16/23 07:04 FiO2 Intake & Output 12/15/23 12/16/23 12/16/23 18:59 06:59 18:59 Intake Total 500 Output Total 1210 1530 100 Balance -1210 -1030 -100 Intake: Oral 500 Output: Drainage 80 100 Right Posterior Back 80 100 Urine 1210 1450 Other: Voiding Method Urinal ABP, PAP, CO, CI - Last Documented Arterial Blood Pressure 134/53 - Exam GENERAL EXAM: Alert, very pleasant 73-year-old male, on 2 L nasal cannula, in no apparent distress. HEAD: Normocephalic and atraumatic EYES: Normal reaction of pupils, equal size. NOSE: Clear with pink turbinates. THROAT: No erythema or exudates. NECK: No masses, no JVD. CHEST: No chest wall deformity. LUNGS: Equal air entry with no crackles, wheeze, rhonchi or dullness. No conversational dyspnea. CVS: S1 and S2 normal with no audible murmur, regular rhythm. No extra heart sounds ABDOMEN: No hepatosplenomegaly, active bowel sounds, no guarding or rigidity. SPINE: No scoliosis or deformity SKIN: No rashes CENTRAL NERVOUS SYSTEM: No focal deficits, tone is normal in all 4 extremities. EXTREMITIES: There is no peripheral edema, clubbing, or cyanosis. Peripheral pulses are intact. - Labs CBC & Chem 7: 12/15/23 15:17 12/13/23 02:55 Labs: Abnormal Lab Results - Last 24 Hours (Table) 12/15/23 12/15/23 Range/Units 15:17 16:55 RBC 4.15 L (4.30-5.90) m/uL Hgb 12.2 L (13.0-17.5) gm/dL Hct 38.0 L (39.0-53.0) % Plt Count 115 L (150-450) k/uL POC Glucose (mg/dL) 119 H (70-110) mg/dL Assessment and Plan Assessment: Severe multilevel thoracolumbar spondylosis/stenosis with radiculopathy and neurogenic claudication status post-operative day # 4 following a T10 to pelvis decompression and fusion. Acute blood loss anemia, expected outcome of surgery, status post 1 unit PRBC transfusion Possible vasovagal episode with hypotension and bradycardia, stabilized History of hypertension History of hyperlipidemia History of coronary disease History of asthma, stable History of obstructive sleep apnea without CPAP Plan: The patient was seen and evaluated Medications reviewed Titrate down the FiO2 as tolerated Currently hemodynamically stable Plan is for inpatient rehabilitation postdischarge We will continue to follow I have personally seen and examined the patient, performed the documentation and the assessment and plan as written. Number of minutes spent on the visit: 10.
--- NOTE | 2023-12-16 15:42 | P.PN ---
Subjective Progress Note Date: 12/16/23 Subjective: Pt is still having some dizziness upon sitting or standing. Patient should continue to get orthostatic vitals. Gen: In NAD, non-toxic HEENT: normocephalic, atraumatic, hearing acuity is intant, mucous membranes moist CVS: perfusing all extremities well, no pitting edema, Respiratory: symmetric chest expansion, no accessory muscle use, GI: soft, NTTP, ND, : no suprapubic tenderness, no CVA tenderness MSK/Derm: no rashes, cyanosis Neuro: CN II-XII intact, no motor weakness, Psych: cooperative, euthymic mood, judgment and insight is intact Assessment and Plan: Status post T10 to pelvis decompression and fusion Leukocytosis, anticipated outcome of surgery, resolved Acute blood loss anemia, status post 1 unit of PRBCs, anticipated outcome of surgery, resolved Orthostatic Hypotension -Pain control with oral Tylenol scheduled, Flexeril 3 times daily as needed, oral [place] as needed, IV Dilaudid as needed, monitor for sedation -PPI for GI prophylaxis -Milk of magnesia as needed for constipation -Bowel regimen per Ortho spine surgery -SCDs for DVT prophylaxis -Repeat CBC today and give additional 1L fluid bolus Hypertensioncontinue home amlodipine 10 mg daily and lisinopril 20, but reduced to daily Goutcontinue allopurinol 100 mg daily BPHcontinue tamsulosin 0.4 mg twice daily, taper back to daily today due to orthostatic symptoms CAD, holding aspirin, restart when okay per Ortho spine surgery Dyslipidemiacontinue pravastatin 80 mg nightly Thank you for allowing us to participate in the care of this pleasant patient. Do not hesitate to contact us with questions. Someone can be reached from the [facility] hospitalist group all hours of the day at [phone] or via perfect serve. Objective - Vital Signs Vital signs: Vital Signs Temp 97.9 F 12/16/23 13:41 Pulse 100 12/16/23 13:41 Resp 16 12/16/23 13:41 BP 132/81 12/16/23 13:41 Pulse Ox 93 L 12/16/23 13:41 FiO2 Intake & Output 12/15/23 12/16/23 12/16/23 18:59 06:59 18:59 Intake Total 500 Output Total 1210 1530 100 Balance -1210 -1030 -100 Intake: Oral 500 Output: Drainage 80 100 Right Posterior Back 80 100 Urine 1210 1450 Other: Voiding Method Urinal ABP, PAP, CO, CI - Last Documented Arterial Blood Pressure 134/53 - Labs CBC & Chem 7: 12/15/23 15:17 12/13/23 02:55 Labs: Abnormal Lab Results - Last 24 Hours (Table) 12/15/23 Range/Units 16:55 POC Glucose (mg/dL) 119 H (70-110) mg/dL
[2023-12-16 17:08] LABS: Glucose,Whole Blood 138 mg/dL (70-110)
[2023-12-16 20:47] LABS: Glucose,Whole Blood 113 mg/dL (70-110)
[2023-12-17 06:19] LABS: Glucose,Whole Blood 86 mg/dL (70-110)
[2023-12-17 08:32] LABS: Basophils % (A) 1 %; Eosinophils # (A) 0.4 k/uL (0-0.7); Eosinophils % (A) 5 %; HCT 36.5 % (39.0-53.0); HGB 12.1 gm/dL (13.0-17.5); Lymphocytes # (A) 1.3 k/uL (1.0-4.8); Lymphocytes % (A) 18 %; MCHC 33.2 g/dL (31.0-37.0); MCV 90.3 fL (80.0-100.0); Mean Platelet Volume 7.5; Monocytes # (A) 0.5 k/uL (0-1.0); Monocytes % (A) 7 %; Neutrophils # (A) 4.9 k/uL (1.3-7.7); Neutrophils % (A) 68 %; RBC 4.04 m/uL (4.30-5.90); RDW 13.1 % (11.5-15.5); WBC 7.2 k/uL (3.8-10.6)
[2023-12-17 08:34] LABS: Platelet Count 186 k/uL (150-450)
[2023-12-17 08:41] LABS: African American GFR (CKD) >90 (>60 ml/min/1.73 sqM); Anion Gap 7 mmol/L; Blood Urea Nitrogen 12 mg/dL (9-20); Calcium 8.4 mg/dL (8.4-10.2); Carbon Dioxide 30 mmol/L (22-30); Chloride 101 mmol/L (98-107); Glucose 110 mg/dL (74-99); Magnesium 2.1 mg/dL (1.6-2.3); Non-African American GFR(CKD) 89 (>60 ml/min/1.73 sqM); Potassium 3.9 mmol/L (3.5-5.1); Sodium 138 mmol/L (137-145)
[2023-12-17] MEDS: TAMSULOSIN 0.4 MG CAP.ER.24H PO SCH (09:06)
--- NOTE | 2023-12-17 09:46 | P.PN ---
Subjective Progress Note Date: 12/17/23 Principal diagnosis: 1. Grade I spondylolisthesis of L3 on L4 2. L3-4 spondylosis with stenosis 3. Bilateral lower extremity radiculopathy 4. Bilateral lower extremity weakness 5. Low back pain Patient was seen at bedside this morning lying semirecumbent position in bed. Patient says yesterday he did get up several times and walk to the bathroom. Patient says some of the lightheadedness and dizziness is been going away. Patient says he has been passing more gas and is hoping to have a bowel movement today. Patient says he did eat both lunch and dinner yesterday sitting up in the chair. Patient is looking forward to going to [facility] rehab tomorrow. Patient denies chest pain, fever, shortness of breath, nausea, vomiting, change in vision, loss of bowel/bladder control. Objective - Vital Signs Vital signs: Vital Signs Temp 98.1 F 12/17/23 07:16 Pulse 89 12/17/23 07:16 Resp 17 12/17/23 07:16 BP 137/74 12/17/23 07:16 Pulse Ox 93 L 12/17/23 07:16 FiO2 Intake & Output 12/16/23 12/17/23 12/17/23 18:59 06:59 18:59 Intake Total 900 1600 Output Total 100 1900 90 Balance 800 -300 -90 Intake: IV 900 0.9 900 Oral 1600 Output: Drainage 100 90 Right Posterior Back 100 90 Urine 1900 Other: Voiding Method Urinal ABP, PAP, CO, CI - Last Documented Arterial Blood Pressure 134/53 - Exam Inspection: Dressing present over thoracolumbar spine was in spine. Dressing appears to be intact. Minimal spotting. Negative for any active drainage. Wilmer appear to be well aligned and intact. Sensation: There is some generalized numbness and tingling in the right lower extremity. Sensation is equal, symmetric, bilaterally intact throughout the rest of the extremities Palpation: There is some generalized tenderness to palpation directly over incis ion over spine. Some generalized tenderness to palpation in paralumbar and parathoracic region. Nontender to palpation throughout rest of exam. Range of motion: Patient has full range of motion throughout bilateral upper extremities on exam. There is some limited range of motion in the bilateral hips and flexed extension secondary to referred pain and stiffness low back. Patient does have good range of motion throughout bilateral knees and ankles and flexion/extension and dorsiflexion/plantar flexion bilaterally. Motor: 5/5 in all major motor is in bilateral upper extremities. 4+/5 in all major motor groups in left lower extremity. 4/5 in all major motor groups right lower extremity. Neurovascular: Radial pulse intact, 2+ bilaterally. Cap refill under 3 seconds in digits of UE Special tests: Negative [place] bilaterally. Negative clonus bilaterally. Negative [place]ila bilaterally. - Labs CBC & Chem 7: 12/17/23 07:06 12/17/23 07:06 Labs: Abnormal Lab Results - Last 24 Hours (Table) 12/16/23 12/16/23 12/17/23 Range/Units 17:05 20:45 07:06 RBC 4.04 L (4.30-5.90) m/uL Hgb 12.1 L (13.0-17.5) gm/dL Hct 36.5 L (39.0-53.0) % Glucose (74-99) mg/dL POC Glucose (mg/dL) 138 H 113 H (70-110) mg/dL 12/17/23 Range/Units 07:06 RBC (4.30-5.90) m/uL Hgb (13.0-17.5) gm/dL Hct (39.0-53.0) % Glucose 110 H (74-99) mg/dL POC Glucose (mg/dL) (70-110) mg/dL Assessment and Plan Assessment: 1. Grade I spondylolisthesis of L3 on L4 2. L3-4 spondylosis with stenosis 3. Bilateral lower extremity radiculopathy 4. Bilateral lower extremity weakness 5. Low back pain - Postop day #5 status post [id number] decompression and fusion Plan: 1. Grade I spondylolisthesis of L3 on L4; L3-4 spondylosis with stenosis; Bilateral lower extremity radiculopathy; Bilateral lower extremity weakness; Low back pain - surgery performed 12/12/2023. Continue pain medication at this time. Maintain drain to gravity at this time. Continue work with therapy daily and perform range of motion exercises while resting in bed. We will continue to follow patient during stay in hospital. Surgical dressing appears to be clean, dry, intact. Assess daily. Negative for any active drainage. Plan for dressing change tomorrow before discharge. PMR saw patient and planning for discharge to [facility] tomorrow. We'll continue to follow patient during stay in hospital. 2. Appreciate medical management 3. Pain management - [place]; Flexeril; gabapentin; Tylenol 4. DVT prophylaxis - mechanical 5. GI prophylaxis - senna; milk of magnesia 6. PT/OT - weightbearing as tolerated with walker and assistance and brace on while up and about 7. Encourage incentive spirometer use 8. Discharge planning - plan for [facility] inpatient rehab tmrw Time with Patient: Less than 30
[2023-12-17 11:38] LABS: Glucose,Whole Blood 102 mg/dL (70-110)
--- NOTE | 2023-12-17 11:38 | P.PN ---
Subjective Progress Note Date: 12/17/23 I am seeing this patient in consultation today 12/13/2023 in the intensive care unit after an elective T10 to pelvis decompression and fusion. Patient is a 73-year-old white male with past medical history significant for severe multilevel lumbar spondylosis/stenosis with radiculopathy symptoms, asthma, GIOVANNA without CPAP, hyperlipidemia, hypertension, and coronary artery disease. Patient was brought in yesterday for an elective T10 to pelvis decompression and fusion with Dr. Argueta. Patient's perioperative period was relatively unremarkable. He reportedly had a brief episode of bradycardia and associated hypotension intraoperatively. It was felt the patient to be best monitored in the intensive care unit. He was extubated in recovery without incident. Patient is currently resting comfortably in bed, on 2 L/min nasal cannula, in no acute distress. Chest x-ray does not show any acute cardiopulmonary process. He does report some mild postsurgical lumbar back pain which is controlled with as needed Dilaudid and [place]'s. Bilateral lower extremities have good strength. There is some right lower extremity numbness, which is chronic, and not worse from baseline. No bowel incontinence. Patient does have an indwelling urinary catheter draining adequate amounts of urine. Heart rhythm on bedside monitor appears normal sinus with a rate of 70 bpm. Blood pressure is now normotensive. Not requiring any vasopressors. Estimated blood loss intraoperatively was approximately 900 mL. Patient did receive 1 unit PRBC and 2.7 L of crystalloid fluid. Most recent postoperative CBC includes a WBC count of 10.5, hemoglobin 12.8, hematocrit 37.8, and platelets 127. There is a Hemovac with a total of 370 mL of sanguinous output reported. Vital signs are stable. The patient is seen today December 14, 2023 in follow-up in the intensive care unit. He is currently sitting up in bed. Awake and alert in no acute distress. He is maintaining good O2 saturations in the 90s on 2 L/min per nasal cannula. He has lactated Ringer's at 20 mph. He is remaining in sinus rhythm. Follow-up CT scan of the lumbar spine revealed postsurgical changes without evidence of immediate postoperative complication. He is status post 1 unit of packed red blood cells this admission. Globin 13.2. His pain is adequately controlled. The patient is seen today December 15, 2023 in follow-up on the regular medical floor. He is currently sitting up in bed. Awake and alert in no acute distress. He is maintaining O2 saturations in the 90s on 2 L/min per nasal cannula. No IV fluids. He did have an episode of orthostatic hypotension earlier this morning. Currently hemodynamically stable. He has been afebrile. He is status post 1 unit of packed red blood cells this admission. Most recent hemoglobin 13.2. Glucose 85. Working well with physical therapy. The patient is seen today December 16, 2023 in follow-up on the regular medical floor. He is currently resting comfortably in bed. Awake and alert in no acute distress. He is maintaining good O2 saturations in the 90s on 2 L/min per nasal cannula. No IV fluids. He is working well with physical therapy. Plan is for inpatient rehabilitation on Monday. Glucose 94. Pain is well-controlled. The patient is seen today December 17, 2023 in follow-up on the regular medical floor. He is awake and alert no acute distress. Sitting up in bed. Maintaining good O2 saturations in the 90s on room air. No IV fluids. No further orthostatic hypotension today. He remains on Antivert as needed. White count 7.2. Hemoglobin 12.1. Platelets 186. Sodium 138. Potassium 3.9. Bicarb 30. BUN 12. Creatinine 0.79. Glucose 110. Objective - Vital Signs Vital signs: Vital Signs Temp 98.1 F 12/17/23 07:16 Pulse 89 12/17/23 07:16 Resp 17 12/17/23 07:16 BP 137/74 12/17/23 07:16 Pulse Ox 93 L 12/17/23 07:16 FiO2 Intake & Output 12/16/23 12/17/23 12/17/23 18:59 06:59 18:59 Intake Total 900 1600 Output Total 100 1900 90 Balance 800 -300 -90 Intake: IV 900 0.9 900 Oral 1600 Output: Drainage 100 90 Right Posterior Back 100 90 Urine 1900 Other: Voiding Method Urinal ABP, PAP, CO, CI - Last Documented Arterial Blood Pressure 134/53 - Exam GENERAL EXAM: Alert, 73-year-old male, sitting up in bed, on room air, in no apparent distress. HEAD: Normocephalic and atraumatic EYES: Normal reaction of pupils, equal size. NOSE: Clear with pink turbinates. THROAT: No erythema or exudates. NECK: No masses, no JVD. CHEST: No chest wall deformity. LUNGS: Equal air entry with no crackles, wheeze, rhonchi or dullness. No conversational dyspnea. CVS: S1 and S2 normal with no audible murmur, regular rhythm. No extra heart sounds ABDOMEN: No hepatosplenomegaly, active bowel sounds, no guarding or rigidity. SPINE: No scoliosis or deformity. Surgical dressing dry and intact SKIN: No rashes CENTRAL NERVOUS SYSTEM: No focal deficits, tone is normal in all 4 extremities. EXTREMITIES: There is no peripheral edema, clubbing, or cyanosis. Peripheral pulses are intact. - Labs CBC & Chem 7: 12/17/23 07:06 12/17/23 07:06 Labs: Abnormal Lab Results - Last 24 Hours (Table) 12/16/23 12/16/23 12/17/23 Range/Units 17:05 20:45 07:06 RBC 4.04 L (4.30-5.90) m/uL Hgb 12.1 L (13.0-17.5) gm/dL Hct 36.5 L (39.0-53.0) % Glucose (74-99) mg/dL POC Glucose (mg/dL) 138 H 113 H (70-110) mg/dL 12/17/23 Range/Units 07:06 RBC (4.30-5.90) m/uL Hgb (13.0-17.5) gm/dL Hct (39.0-53.0) % Glucose 110 H (74-99) mg/dL POC Glucose (mg/dL) (70-110) mg/dL Assessment and Plan Assessment: Severe multilevel thoracolumbar spondylosis/stenosis with radiculopathy and neurogenic claudication status post-operative day # 5 following a T10 to pelvis decompression and fusion. Acute blood loss anemia, expected outcome of surgery, status post 1 unit PRBC transfusion Possible vasovagal episode with hypotension and bradycardia, stabilized History of hypertension History of hyperlipidemia History of coronary disease History of asthma, stable History of obstructive sleep apnea without CPAP Plan: The patient was seen and evaluated Medications and labs reviewed Currently stable and on room air Plan is for inpatient rehabilitation tomorrow I have personally seen and examined the patient, performed the documentation and the assessment and plan as written. Number of minutes spent on the visit: 10.
--- NOTE | 2023-12-17 11:57 | P.PN ---
Subjective Progress Note Date: 12/17/23 Subjective: Pt is still having some dizziness upon sitting. Orthostatic vitals have improved however Gen: In NAD, non-toxic HEENT: normocephalic, atraumatic, hearing acuity is intant, mucous membranes mo ist CVS: perfusing all extremities well, no pitting edema, Respiratory: symmetric chest expansion, no accessory muscle use, GI: soft, NTTP, ND, : no suprapubic tenderness, no CVA tenderness MSK/Derm: no rashes, cyanosis Neuro: CN II-XII intact, no motor weakness, Psych: cooperative, euthymic mood, judgment and insight is intact Assessment and Plan: Status post T10 to pelvis decompression and fusion Leukocytosis, anticipated outcome of surgery, resolved Acute blood loss anemia, status post 1 unit of PRBCs, anticipated outcome of surgery, resolved Orthostatic Hypotension -Pain control with oral Tylenol scheduled, Flexeril 3 times daily as needed, oral [place] as needed, IV Dilaudid as needed, monitor for sedation -PPI for GI prophylaxis -Milk of magnesia as needed for constipation -Bowel regimen per Ortho spine surgery -SCDs for DVT prophylaxis -Repeat CBC today and give additional 1L fluid bolus Hypertensioncontinue home amlodipine 10 mg daily and lisinopril 20, but reduced to daily Goutcontinue allopurinol 100 mg daily BPHcontinue tamsulosin 0.4 mg twice daily, tapered back to daily today due to orthostatic symptoms CAD, holding aspirin, restart when okay per Ortho spine surgery Dyslipidemiacontinue pravastatin 80 mg nightly Thank you for allowing us to participate in the care of this pleasant patient. Do not hesitate to contact us with questions. Someone can be reached from the [facility] [place] hospitalist group all hours of the day at [phone] or via perfect serve. Objective - Vital Signs Vital signs: Vital Signs Temp 98.1 F 12/17/23 07:16 Pulse 89 12/17/23 07:16 Resp 17 12/17/23 07:16 BP 137/74 12/17/23 07:16 Pulse Ox 93 L 12/17/23 07:16 FiO2 Intake & Output 12/16/23 12/17/23 12/17/23 18:59 06:59 18:59 Intake Total 900 1600 Output Total 100 1900 90 Balance 800 -300 -90 Intake: IV 900 0.9 900 Oral 1600 Output: Drainage 100 90 Right Posterior Back 100 90 Urine 1900 Other: Voiding Method Urinal Urinal ABP, PAP, CO, CI - Last Documented Arterial Blood Pressure 134/53 - Labs CBC & Chem 7: 12/17/23 07:06 12/17/23 07:06 Labs: Abnormal Lab Results - Last 24 Hours (Table) 12/16/23 12/16/23 12/17/23 Range/Units 17:05 20:45 07:06 RBC 4.04 L (4.30-5.90) m/uL Hgb 12.1 L (13.0-17.5) gm/dL Hct 36.5 L (39.0-53.0) % Glucose (74-99) mg/dL POC Glucose (mg/dL) 138 H 113 H (70-110) mg/dL 12/17/23 Range/Units 07:06 RBC (4.30-5.90) m/uL Hgb (13.0-17.5) gm/dL Hct (39.0-53.0) % Glucose 110 H (74-99) mg/dL POC Glucose (mg/dL) (70-110) mg/dL
[2023-12-17 16:50] LABS: Glucose,Whole Blood 111 mg/dL (70-110)
[2023-12-17 20:32] LABS: Glucose,Whole Blood 106 mg/dL (70-110)
[2023-12-18 06:20] LABS: Glucose,Whole Blood 86 mg/dL (70-110)
[2023-12-18 08:25] VITALS: RESP 18
--- NOTE | 2023-12-18 10:33 | P.DS ---
Providers Date of admission: 12/12/23 05:38 Expected date of discharge: 12/18/23 Attending physician: Lewis Argueta DO Consults: 12/12/23 16:30 Consult Physician Stat Consulting Provider: Momo Altman Consult Reason/Comments: MEDICAL MANAGEMENT. Do you want consulting provider notified?: Already Contacted 12/12/23 23:33 Consult Physician Routine Consulting Provider: Valente Mckeon Consult Reason/Comments: ICU management Do you want consulting provider notified?: Already Contacted 12/15/23 08:54 Consult Physician Routine Consulting Provider: Fercho Caban Consult Reason/Comments: evaluate for inpatient rehab Do you want consulting provider notified?: Yes Primary care physician: [facility] Hospital Course: Date of admission: 12/12/2023 Date of discharge: 12/18/2023 Admission diagnosis: 1. Grade I spondylolisthesis of L3 on L4 2. L3-4 spondylosis with stenosis 3. Bilateral lower extremity radiculopathy 4. Bilateral lower extremity weakness 5. Low back pain - Postop day #5 status post [id number] decompression and fusion Discharge diagnosis: Same Attending physician: Dr. Argueta Surgical procedures: [id number] decompression and fusion Brief history: Patient is a 73-year-old male with a history of grade 1 spinal listhesis L3 and L4; L3-4 spinal spondylosis with stenosis; bilateral lower extremity radiculopathy; bilateral lower extremity weakness; low back pain. At this point patient has failed conservative treatment measures and has opted to proceed with a elective [id number] decompression and fusion. Hospital course: Details of patient's surgery can be found in operative report. Patient tolerated the procedure well and was subsequently transported to orthopedic floor. Patient's orthopeidc and medical care was provided daily. Patient had daily laboratory tests performed for evaluation of overall blood counts. Patient had daily physical therapy to include strengthening range of motion as well as education with walker ambulation. Patient was noted to have a relatively uneventful postoperative course. Patient reported satisfactory pain control with oral pain medications by postoperative day 6. Patient showed satisfactory progress with physical therapy. Patient moved steadily through the program and had no difficulty meeting the goals by postoperative day 6. Given patient's otherwise satisfactory course and having met physical therapy goals, plan is to discharge patient to inpatient rehab at [facility] on postoperative day 6. Discharge condition/disposition: Patient will be discharged to inpatient rehab at [facility] in stable condition. Discharge medications: Instructions are given on resumption of patient's normal daily medications per primary care recommendation, in addition patient will be prescribed Shelby; senna; Flexeril; Duricef; gabapentin. Spine Discharge and Recovery Instructions Date of Surgery: 12/12/2023 Diagnosis: 1. Grade I spondylolisthesis of L3 on L4 2. L3-4 spondylosis with stenosis 3. Bilateral lower extremity radiculopathy 4. Bilateral lower extremity weakness 5. Low back pain Procedure: [[id number] decompression and fusion] Medications: See medication list All medication refills should be obtained through your primary care doctor or your clinic spine surgeon. Please discuss prescription refills at your follow up appointment. Do not call the hospital for medication refills. Dressing: Leave your dressing in place for a total of 5 days post operatively. Then you may remove your dressing and leave open to air. Keep the area clean and if not able to keep area clean, then cover with sterile gauze and tape. Showering: You may shower 3 days after your procedure allowing soap and water to run over incision. Do not scrub. Do not soak. Blot dry. Follow up: Please confirm a follow up appointment with your surgeon 3 weeks post operatively. Please make an appointment to follow up with your PCP in 1-2 weeks after surgery for evaluation 3 phase, 3-week plan POST OP WEEKS 1-3 1. Lifting/carrying/pushing/pulling limited to less than 5 pounds. 2. Do not sit for longer than 15 minutes at one time. Get up and walk around. Prolonged sitting is NOT advised. If you lay down, see if you can tolerate laying down on you front (belly side) 3. Walk for periods of 15 minutes = 1 mile but no longer; do it multiple times times each day. 4. Ice your low back after activity. POST OP WEEKS 3-6 1. Lifting limited to less than 20 pounds. 2. Do not sit for longer than 30 minutes at a time. Frequently change positions. Use a sit-to stand workstation or take frequent breaks from sitting if you have returned to work. 3. Walk for 30 minutes each day. If possible, do these three or more times a day POST OP WEEKS 6+ At your 6-week appointment we will give you a physical therapy referral to focus on a core stabilization and strengthening program. You should also work on leg & buttock strengthening, hamstring & quadriceps stretching, and continue a low impact aerobic activity program such as swimming, walking, or riding a stationary bicycle. During the initial 6 weeks after your surgery, you are at the highest risk of re-injuring your spine. You should generally avoid BLTs (bending, lifting and twisting combination motions) and follow the above guidelines to reduce the chance of reinjury. You can anticipate post op appointments in our office at approximately 3 weeks and 6 weeks after your surgery. INCISION CARE: If your incision is not draining you do NOT need to cover it with a dressing. Keep your incision clean, dry and intact. In most cases, we apply skin glue, adelita or sutures to the incision at the time of surgery. This will be like a crust or have the appearance of a scab and will fall off in time on its own. The stitches or adelita need to be removed at 3 weeks post op appointment. You may begin to shower 3 days after surgery (this allows the glue to gutierrez well). However, please avoid scrubbing the incision site or peeling off any of the skin glue. This will ensure optimal healing of your incision. Also, during this time avoid soaking the incision area in water - this includes swimming pools, hot tubs or baths. No ointments, lotions or oils on the incision until your surgeon allows. Leave adelita, sutures or glue in place. Neurological dysfunction that comes on suddenly can also be a sign of a stroke. Below some common symptoms of a stroke are listed: B - balance difficulty such as sudden onset walking or leaning to one side - NEW E - eye problem such as sudden double vision or trouble seeing on one side - NEW F - Facial weakness or numbness on one side - NEW A - Arm or leg weakness or numbness on one side - NEW S - Slurred speech or difficulty with word finding - NEW T - Time is BRAIN! Call 911 as soon as you recognize these symptoms Diet: Consume a regular diet rich in vegetables and lean protein such as chicken or fish. You should consume in a ratio of approximately 20% fats|40% carbohydrates|40%protein. Vegetables, sweet potatoes, brown rice or quinoa are examples of good carbohydrates. Chips, white bread, cookies and sweets/sugar are examples of bad carbohydrates. Limit your bad carbs, go wild with good carbs. "Life's Simple 7" Guidelines as per [place] [employer] These will help you reclaim your life after surgery and slitting machine operator helper in your recovery, keeping in mind your restrictions. (1) Get Active. Physical activity can help people lose weight, control high blood pressure and cholesterol, feel emotionally better, and sleep better. (2) Control Cholesterol. Avoid a diet high in saturated fat, trans fat, & cholesterol. Limit whole milk & cream, ice cream, butter, egg yolks, processed meats (like sausage and hot dogs), and fatty meats. Choose healthy foods that are low in saturated fat, trans fat and cholesterol which include: Fruits and vegetables, fiber rich grain products (like whole grain pasta and brown rice), lean meat such as chicken, fish, nuts, seeds, and legumes. (3) Eat Better. Eat small portions. Shop at the grocery with a list and do not stray from it. Tips for a healthy diet include: Limit sodium intake to less than 1500mg daily, avoid prepackaged, processed, and fast foods, choose a diet rich in fruits, vegetables, and whole grain, high fiber foods, and limit saturated & cholesterol in your diet. (4) Manage Blood Pressure. If you have high blood pressure, you should have a cuff at home so that you can check your blood pressure regularly. Be sure you have a good cuff. An arm one is generally better than a wrist one. Bring the cuff to a doctor's appointment to validate that the measurements that your cuff are taking are accurate. Take your blood pressure twice daily when you are sitting down and relaxing. Record the numbers in a log and bring this log with you to your doctors' appointments. (5) Lose Weight if your BMI is above 25. A healthy BMI is between 19-25. To calculate Your BMI, you may use a Standard BMI Calculator on the NIH BMI website: <www.nhlbi.nih.gov/guidelines/obesity/BMI/bmicalc.htm>. Weigh oneself daily. If you are overweight, set a goal to lose weight. A pound a week loss if needed is a good target. (6) Reduce Blood Sugar. Limit foods and liquids with "added sugars." (Added sugars include sucrose, fructose, glucose, maltose, dextrose, high fructose corn syrup, corn syrup, concentrated fruit juice and honey). (7) Stop Smoking. If you smoke, quitting smoking is one of the best things that you can do for your health. Smoking increases your risk of heart attack, stroke, and peripheral vascular disease, which is a build-up of plaque in your arteries. Please discard all the cigarettes and lighters in your house. Have a plan for what you will do when you have the urge to smoke. Direct and second- hand smoke shortens your life as well as the lives of your family, friends and others around you. For your health and the health of those around you, please consider quitting! Proper Bending Body Mechanics: Maintain a wide stance with one foot slightly in front of the other. Keep your back straight. Bend utilizing the strength in your hips and knees. Do not bend at the waist. Maintain the lifted object at your waist-level close to your body. Avoid lifting weight that causes immediately pain or pain anywhere in the body afterwards. Smoking/Nicotine If there was ever one thing that you could do to increase your overall health, decrease your risk of cardiovascular problems by about 39% the second you make the choice, it is to STOP SMOKING. Your body's most instant gratification is the second you stop smoking. We have all heard the studies, read the articles but it is true, smoking is extremely bad for your overall health, and moreover it is detrimental to your bone health. Nicotine, IN ANY FORM, kills bone cells, prevents your body from healing fractures, and significantly prolongs healing after surgery. In spine surgery specifically, it increases your risk of not healing your bones to create a fusion and increases your risk of having a revision surgery due to this up to 60%. I know it is hard. I know it feels impossible. But there are ways. Take control of your life. We are here to help you through it. And when you are ready, ask us and we can direct you to help if you desire. Use the START Plan to Quit Smoking (please visit the Helpguide.org website listed below for more information): S = Set a quit date. Choose a date within the next 2 weeks, so you have enough time to prepare without losing your motivation to quit. If you mainly smoke at work, quit on the weekend, so you have a few days to adjust to the change. T = Tell family, friends, and co-workers that you plan to quit. Let your friends and family in on your plan to quit smoking and tell them you need their support and encouragement to stop. Look for a quit roberto who wants to stop smoking as well. You can help each other get through the rough times. A = Anticipate and plan for the challenges you'll face while quitting. Most people who begin smoking again do so within the first 3 months. You can help yourself make it through by preparing ahead for common challenges, such as nicotine withdrawal and cigarette cravings. R = Remove cigarettes and other tobacco products from your home, car, and work. Throw away all your cigarettes (no emergency pack!), lighters, ashtrays, and matches. Wash your clothes and freshen up anything that smells like smoke. Shampoo your car, clean your drapes and carpet, and steam your furniture. T = Talk to your doctor about getting help to quit. Your doctor can prescribe medication to help with withdrawal and suggest other alternatives. If you can't see a doctor, you can get many products over the counter at your local pharmacy or grocery store, including the nicotine patch, nicotine lozenges, and nicotine gum. Resources for Quitting Smoking: <https://www.[place].gov/documents/md smith/Quit_Tobacco_Resources_for_patients_313480_7.pdf> Supplementation: Take recommended dosages of Vitamin D and Calcium to help fortify your bones and help them to heal. See your health maintenance packet for dosages and recommended levels. DVT/VTE prophylaxis: You will be given compression stockings from the hospital. Wear these daily for the first two weeks after surgery. You may take them off at night. You may be prescribed a medication to help thin your blood. Take this as directed. If you are not prescribed this medication, early and frequent ambulation has been shown to be the best prophylaxis to deep vein thrombosis and sequelae related to this event. Assessment: 1. Grade I spondylolisthesis of L3 on L4 2. L3-4 spondylosis with stenosis 3. Bilateral lower extremity radiculopathy 4. Bilateral lower extremity weakness 5. Low back pain Procedures: [id number] decompression and fusion Patient Condition at Discharge: Good Plan - Discharge Summary Discharge Rx Participant: Yes New Discharge Prescriptions: New Cyclobenzaprine [Flexeril] 5 mg PO TID #21 tablet Gabapentin 300 mg PO TID #24 cap cefaDROXiL [Duricef] 500 mg PO Q12HR 5 Days #10 cap HYDROcodone/APAP 7.5-325MG [Shelby 7.5-325] 1 tab PO Q6HR PRN #21 tab PRN Reason: Pain Sennosides/Docusate Sodium [Senna Plus 8.6-50 mg Softgel] 1 each PO DAILY #20 capsule No Action allopurinoL [Zyloprim] 100 mg PO DAILY amLODIPine [Norvasc] 10 mg PO DAILY@1200 lisinopriL [Prinivil] 20 mg PO BID Loratadine [Claritin] 10 mg PO DAILY PRN PRN Reason: Allergy Symptoms Omeprazole [PriLOSEC] 20 mg PO QAM Pravastatin Sodium 80 mg PO HS Magnesium(Unk Dose) 1 dose PO DAILY Albuterol Inhaler [Ventolin Hfa Inhaler] 1 - 2 puff INHALATION Q6H PRN PRN Reason: sob Calcium Carbonate/Vitamin D3 [Calcium 500 mg-Vit D3 5 mcg (200 Unit)] 1 each PO BID Nitroglycerin Sl Tabs [Nitrostat] 0.4 mg SUBLINGUAL Q5M PRN PRN Reason: Chest Pain Tamsulosin HCl [Flomax] 0.4 mg PO BID Aspirin 81 mg PO DAILY Meclizine HCl 12.5 mg PO TID PRN PRN Reason: dizziness Discharge Medication List Loratadine [Claritin] 10 mg PO DAILY PRN 07/14/18 [History] Omeprazole [PriLOSEC] 20 mg PO QAM 07/14/18 [History] Pravastatin Sodium 80 mg PO HS 07/14/18 [History] allopurinoL [Zyloprim] 100 mg PO DAILY 07/14/18 [History] amLODIPine [Norvasc] 10 mg PO DAILY@1200 07/14/18 [History] lisinopriL [Prinivil] 20 mg PO BID 07/14/18 [History] Albuterol Inhaler [Ventolin Hfa Inhaler] 1 - 2 puff INHALATION Q6H PRN 12/07/23 [History] Aspirin 81 mg PO DAILY 12/07/23 [History] Calcium Carbonate/Vitamin D3 [Calcium 500 mg-Vit D3 5 mcg (200 Unit)] 1 each PO BID 12/07/23 [History] Magnesium(Unk Dose) 1 dose PO DAILY 12/07/23 [History] Meclizine HCl 12.5 mg PO TID PRN 12/07/23 [History] Nitroglycerin Sl Tabs [Nitrostat] 0.4 mg SUBLINGUAL Q5M PRN 12/07/23 [History] Tamsulosin HCl [Flomax] 0.4 mg PO BID 12/07/23 [History] Cyclobenzaprine [Flexeril] 5 mg PO TID #21 tablet 12/18/23 [Rx] Gabapentin 300 mg PO TID #24 cap 12/18/23 [Rx] HYDROcodone/APAP 7.5-325MG [Shelby 7.5-325] 1 tab PO Q6HR PRN #21 tab 12/18/23 [Rx] Sennosides/Docusate Sodium [Senna Plus 8.6-50 mg Softgel] 1 each PO DAILY #20 capsule 12/18/23 [Rx] cefaDROXiL [Duricef] 500 mg PO Q12HR 5 Days #10 cap 12/18/23 [Rx] Follow up Appointment(s)/Referral(s): Lewis Argueta DO [Doctor of Osteopathic Medicine] - 1 Week Activity/Diet/Wound Care/Special Instructions: Spine Discharge and Recovery Instructions Date of Surgery: 12/12/2023 Diagnosis: 1. Grade I spondylolisthesis of L3 on L4 2. L3-4 spondylosis with stenosis 3. Bilateral lower extremity radiculopathy 4. Bilateral lower extremity weakness 5. Low back pain Procedure: [[id number] decompression and fusion] Medications: See medication list All medication refills should be obtained through your primary care doctor or your clinic spine surgeon. Please discuss prescription refills at your follow up appointment. Do not call the hospital for medication refills. Dressing: Leave your dressing in place for a total of 5 days post operatively. Then you may remove your dressing and leave open to air. Keep the area clean and if not able to keep area clean, then cover with sterile gauze and tape. Showering: You may shower 3 days after your procedure allowing soap and water to run over incision. Do not scrub. Do not soak. Blot dry. Follow up: Please confirm a follow up appointment with your surgeon 3 weeks post operatively. Please make an appointment to follow up with your PCP in 1-2 weeks after surgery for evaluation 3 phase, 3-week plan POST OP WEEKS 1-3 1. Lifting/carrying/pushing/pulling limited to less than 5 pounds. 2. Do not sit for longer than 15 minutes at one time. Get up and walk around. Prolonged sitting is NOT advised. If you lay down, see if you can tolerate laying down on you front (belly side) 3. Walk for periods of 15 minutes = 1 mile but no longer; do it multiple times times each day. 4. Ice your low back after activity. POST OP WEEKS 3-6 1. Lifting limited to less than 20 pounds. 2. Do not sit for longer than 30 minutes at a time. Frequently change positions. Use a sit-to stand workstation or take frequent breaks from sitting if you have returned to work. 3. Walk for 30 minutes each day. If possible, do these three or more times a day POST OP WEEKS 6+ At your 6-week appointment we will give you a physical therapy referral to focus on a core stabilization and strengthening program. You should also work on leg & buttock strengthening, hamstring & quadriceps stretching, and continue a low impact aerobic activity program such as swimming, walking, or riding a stationary bicycle. During the initial 6 weeks after your surgery, you are at the highest risk of re-injuring your spine. You should generally avoid BLTs (bending, lifting and twisting combination motions) and follow the above guidelines to reduce the chance of reinjury. You can anticipate post op appointments in our office at approximately 3 weeks and 6 weeks after your surgery. INCISION CARE: If your incision is not draining you do NOT need to cover it with a dressing. Keep your incision clean, dry and intact. In most cases, we apply skin glue, adelita or sutures to the incision at the time of surgery. This will be like a crust or have the appearance of a scab and will fall off in time on its own. The stitches or adelita need to be removed at 3 weeks post op appointment. You may begin to shower 3 days after surgery (this allows the glue to gutierrez well). However, please avoid scrubbing the incision site or peeling off any of the skin glue. This will ensure optimal healing of your incision. Also, during this time avoid soaking the incision area in water - this includes swimming pools, hot tubs or baths. No ointments, lotions or oils on the incision until your surgeon allows. Leave adelita, sutures or glue in place. Neurological dysfunction that comes on suddenly can also be a sign of a stroke. Below some common symptoms of a stroke are listed: B - balance difficulty such as sudden onset walking or leaning to one side - NEW E - eye problem such as sudden double vision or trouble seeing on one side - NEW F - Facial weakness or numbness on one side - NEW A - Arm or leg weakness or numbness on one side - NEW S - Slurred speech or difficulty with word finding - NEW T - Time is BRAIN! Call 911 as soon as you recognize these symptoms Diet: Consume a regular diet rich in vegetables and lean protein such as chicken or fish. You should consume in a ratio of approximately 20% fats|40% carbohydrates|40%protein. Vegetables, sweet potatoes, brown rice or quinoa are examples of good carbohydrates. Chips, white bread, cookies and sweets/sugar are examples of bad carbohydrates. Limit your bad carbs, go wild with good carbs. "Life's Simple 7" Guidelines as per [place] [employer] These will help you reclaim your life after surgery and slitting machine operator helper in your recovery, keeping in mind your restrictions. (1) Get Active. Physical activity can help people lose weight, control high blood pressure and cholesterol, feel emotionally better, and sleep better. (2) Control Cholesterol. Avoid a diet high in saturated fat, trans fat, & cholesterol. Limit whole milk & cream, ice cream, butter, egg yolks, processed meats (like sausage and hot dogs), and fatty meats. Choose healthy foods that are low in saturated fat, trans fat and cholesterol which include: Fruits and vegetables, fiber rich grain products (like whole grain pasta and brown rice), lean meat such as chicken, fish, nuts, seeds, and legumes. (3) Eat Better. Eat small portions. Shop at the grocery with a list and do not stray from it. Tips for a healthy diet include: Limit sodium intake to less than 1500mg daily, avoid prepackaged, processed, and fast foods, choose a diet rich in fruits, vegetables, and whole grain, high fiber foods, and limit saturated & cholesterol in your diet. (4) Manage Blood Pressure. If you have high blood pressure, you should have a cuff at home so that you can check your blood pressure regularly. Be sure you have a good cuff. An arm one is generally better than a wrist one. Bring the cuff to a doctor's appointment to validate that the measurements that your cuff are taking are accurate. Take your blood pressure twice daily when you are sitting down and relaxing. Record the numbers in a log and bring this log with you to your doctors' appointments. (5) Lose Weight if your BMI is above 25. A healthy BMI is between 19-25. To calculate Your BMI, you may use a Standard BMI Calculator on the NIH BMI website: <www.nhlbi.nih.gov/guidelines/obesity/BMI/bmicalc.htm>. Weigh oneself daily. If you are overweight, set a goal to lose weight. A pound a week loss if needed is a good target. (6) Reduce Blood Sugar. Limit foods and liquids with "added sugars." (Added sugars include sucrose, fructose, glucose, maltose, dextrose, high fructose corn syrup, corn syrup, concentrated fruit juice and honey). (7) Stop Smoking. If you smoke, quitting smoking is one of the best things that you can do for your health. Smoking increases your risk of heart attack, stroke, and peripheral vascular disease, which is a build-up of plaque in your arteries. Please discard all the cigarettes and lighters in your house. Have a plan for what you will do when you have the urge to smoke. Direct and second- hand smoke shortens your life as well as the lives of your family, friends and others around you. For your health and the health of those around you, please consider quitting! Proper Bending Body Mechanics: Maintain a wide stance with one foot slightly in front of the other. Keep your back straight. Bend utilizing the strength in your hips and knees. Do not bend at the waist. Maintain the lifted object at your waist-level close to your body. Avoid lifting weight that causes immediately pain or pain anywhere in the body afterwards. Smoking/Nicotine If there was ever one thing that you could do to increase your overall health, decrease your risk of cardiovascular problems by about 39% the second you make the choice, it is to STOP SMOKING. Your body's most instant gratification is the second you stop smoking. We have all heard the studies, read the articles but it is true, smoking is extremely bad for your overall health, and moreover it is detrimental to your bone health. Nicotine, IN ANY FORM, kills bone cells, prevents your body from healing fractures, and significantly prolongs healing after surgery. In spine surgery specifically, it increases your risk of not healing your bones to create a fusion and increases your risk of having a revision surgery due to this up to 60%. I know it is hard. I know it feels impossible. But there are ways. Take contro l of your life. We are here to help you through it. And when you are ready, ask us and we can direct you to help if you desire. Use the START Plan to Quit Smoking (please visit the [employer] website listed below for more information): S = Set a quit date. Choose a date within the next 2 weeks, so you have enough time to prepare without losing your motivation to quit. If you mainly smoke at work, quit on the weekend, so you have a few days to adjust to the change. T = Tell family, friends, and co-workers that you plan to quit. Let your friends and family in on your plan to quit smoking and tell them you need their support and encouragement to stop. Look for a quit roberto who wants to stop smoking as well. You can help each other get through the rough times. A = Anticipate and plan for the challenges you'll face while quitting. Most people who begin smoking again do so within the first 3 months. You can help yourself make it through by preparing ahead for common challenges, such as nicotine withdrawal and cigarette cravings. R = Remove cigarettes and other tobacco products from your home, car, and work. Throw away all your cigarettes (no emergency pack!), lighters, ashtrays, and matches. Wash your clothes and freshen up anything that smells like smoke. Shampoo your car, clean your drapes and carpet, and steam your furniture. T = Talk to your doctor about getting help to quit. Your doctor can prescribe medication to help with withdrawal and suggest other alternatives. If you can't see a doctor, you can get many products over the cou nter at your local pharmacy or grocery store, including the nicotine patch, nicotine lozenges, and nicotine gum. Resources for Quitting Smoking: <https://www.[place].gov/documents/[facility]/Quit_To bacco_Resources_for_patients_313480_7.pdf> Supplementation: Take recommended dosages of Vitamin D and Calcium to help fortify your bones and help them to heal. See your health maintenance packet for dosages and recommended levels. DVT/VTE prophylaxis: You will be given compression stockings from the hospital. Wear these daily for the first two weeks after surgery. You may take them off at night. You may be prescribed a medication to help thin your blood. Take this as directed. If you are not prescribed this medication, early and frequent ambulation has been shown to be the best prophylaxis to deep vein thrombosis and sequelae related to this event. Discharge Disposition: TRANSFER TO SNF/ECF
--- NOTE | 2023-12-18 10:35 | P.PN ---
Subjective Progress Note Date: 12/18/23 Principal diagnosis: 1. Grade I spondylolisthesis of L3 on L4 2. L3-4 spondylosis with stenosis 3. Bilateral lower extremity radiculopathy 4. Bilateral lower extremity weakness 5. Low back pain Patient was seen at bedside this morning lying in the semirecumbent position with dressing on thoracolumbar spine. Patient says he did have a small bowel movement yesterday. Patient says he continues passed gas contrasted during. Juice and coffee. Patient is looking forward to going to [facility] inpatient rehab today. Patient says he has been doing better over the past couple days when he is gotten up on his own into the bathroom.Patient d enies chest pain, fever, shortness of breath, nausea, vomiting, change in vision, loss of bowel/bladder control. Objective - Vital Signs Vital signs: Vital Signs Temp 98.1 F 12/18/23 07:10 Pulse 88 12/18/23 07:10 Resp 18 12/18/23 07:10 BP 140/71 12/18/23 07:10 Pulse Ox 85 L 12/18/23 08:13 FiO2 21 12/18/23 08:13 Intake & Output 12/17/23 12/18/23 12/18/23 18:59 06:59 18:59 Output Total 90 900 Balance -90 -900 Output: Drainage 90 Right Posterior Back 90 Urine 900 Other: Voiding Method Urinal # Bowel Movements 1 ABP, PAP, CO, CI - Last Documented Arterial Blood Pressure 134/53 - Exam Inspection: Dressing present over thoracolumbar spine was in spine. Dressing appears to be intact. Minimal spotting. Negative for any active drainage. New silver foam dressing placed over incision. [place] appear to be well aligned and intact. Sensation: There is some generalized numbness and tingling in the right lower extremity. Sensation is equal, symmetric, bilaterally intact throughout the rest of the extremities Palpation: There is some generalized tenderness to palpation directly over incision over spine. Some generalized tenderness to palpation in paralumbar and parathoracic region. Nontender to palpation throughout rest of exam. Range of motion: Patient has full range of motion throughout bilateral upper extremities on exam. There is some limited range of motion in the bilateral hips and flexed extension secondary to referred pain and stiffness low back. Patient does have good range of motion throughout bilateral knees and ankles and flexion/extension and dorsiflexion/plantar flexion bilaterally. Motor: 5/5 in all major motor is in bilateral upper extremities. 4+/5 in all major motor groups in left lower extremity. 4/5 in all major motor groups right lower extremity. Neurovascular: Radial pulse intact, 2+ bilaterally. Cap refill under 3 seconds in digits of UE Special tests: Negative Homans bilaterally. Negative clonus bilaterally. Negative Nila bilaterally. - Labs CBC & Chem 7: 12/17/23 07:06 12/17/23 07:06 Labs: Abnormal Lab Results - Last 24 Hours (Table) 12/17/23 Range/Units 16:49 POC Glucose (mg/dL) 111 H (70-110) mg/dL Assessment and Plan Assessment: 1. Grade I spondylolisthesis of L3 on L4 2. L3-4 spondylosis with stenosis 3. Bilateral lower extremity radiculopathy 4. Bilateral lower extremity weakness 5. Low back pain - Postop day #6 status post [id number] decompression and fusion Plan: 1. Grade I spondylolisthesis of L3 on L4; L3-4 spondylosis with stenosis; Bilateral lower extremity radiculopathy; Bilateral lower extremity weakness; Low back pain - surgery performed 12/12/2023. Continue pain medication at this time. Drain removed at bedside today. Dressing change. [place] appear to be well aligned and intact. Continue work with therapy daily and perform range of motion exercises while resting in bed. Discharge to inpatient rehab at [facility] today 2. Appreciate medical management 3. Pain management - Superior; Flexeril; gabapentin; Tylenol 4. DVT prophylaxis - mechanical 5. GI prophylaxis - senna; milk of magnesia 6. PT/OT - weightbearing as tolerated with walker and assistance and brace on while up and about 7. Encourage incentive spirometer use 8. Discharge planning - discharge to [facility] inpatient rehab today Time with Patient: Less than 30
--- NOTE | 2023-12-18 11:01 | P.PN ---
Subjective Progress Note Date: 12/18/23 Subjective: Pt is still having some dizziness upon sitting. Orthostatic vitals have improved however Gen: In NAD, non-toxic HEENT: normocephalic, atraumatic, hearing acuity is intant, mucous membranes mo ist CVS: perfusing all extremities well, no pitting edema, Respiratory: symmetric chest expansion, no accessory muscle use, GI: soft, NTTP, ND, : no suprapubic tenderness, no CVA tenderness MSK/Derm: no rashes, cyanosis Neuro: CN II-XII intact, no motor weakness, Psych: cooperative, euthymic mood, judgment and insight is intact Assessment and Plan: Status post T10 to pelvis decompression and fusion Leukocytosis, anticipated outcome of surgery, resolved Acute blood loss anemia, status post 1 unit of PRBCs, anticipated outcome of surgery, resolved Orthostatic Hypotension -Pain control with oral Tylenol scheduled, Flexeril 3 times daily as needed, oral Ovid as needed, IV Dilaudid as needed, monitor for sedation -PPI for GI prophylaxis -Milk of magnesia as needed for constipation -Bowel regimen per Ortho spine surgery -SCDs for DVT prophylaxis -Repeat CBC today and give additional 1L fluid bolus Hypertensioncontinue home amlodipine 10 mg daily and lisinopril 20, but reduced to daily Goutcontinue allopurinol 100 mg daily BPHcontinue tamsulosin 0.4 mg twice daily, tapered back to daily today due to orthostatic symptoms CAD, holding aspirin, restart when okay per Ortho spine surgery Dyslipidemiacontinue pravastatin 80 mg nightly Thank you for allowing us to participate in the care of this pleasant patient. Do not hesitate to contact us with questions. Someone can be reached from the [facility] hospitalist group all hours of the day at [phone] or via perfect serve. Objective - Vital Signs Vital signs: Vital Signs Temp 98.1 F 12/18/23 07:10 Pulse 88 12/18/23 08:00 Resp 18 12/18/23 08:00 BP 140/71 12/18/23 07:10 Pulse Ox 85 L 12/18/23 08:13 FiO2 21 12/18/23 08:13 Intake & Output 12/17/23 12/18/23 12/18/23 18:59 06:59 18:59 Output Total 90 900 Balance -90 -900 Output: Drainage 90 Right Posterior Back 90 Urine 900 Other: Voiding Method Urinal Urinal # Bowel Movements 1 ABP, PAP, CO, CI - Last Documented Arterial Blood Pressure 134/53 - Labs CBC & Chem 7: 12/17/23 07:06 12/17/23 07:06 Labs: Abnormal Lab Results - Last 24 Hours (Table) 12/17/23 Range/Units 16:49 POC Glucose (mg/dL) 111 H (70-110) mg/dL
[2023-12-18 11:39] LABS: Glucose,Whole Blood 115 mg/dL (70-110)
[2023-12-18 14:39] VITALS: BP 103/67; PULSE 100; TEMP 98.6
--- NOTE | 2023-12-18 15:10 | P.PN ---
Subjective Progress Note Date: 12/18/23 I am seeing this patient in consultation today 12/13/2023 in the intensive care unit after an elective T10 to pelvis decompression and fusion. Patient is a 73-year-old white male with past medical history significant for severe multilevel lumbar spondylosis/stenosis with radiculopathy symptoms, asthma, GIOVANNA without CPAP, hyperlipidemia, hypertension, and coronary artery disease. Patient was brought in yesterday for an elective T10 to pelvis decompression and fusion with Dr. Argueta. Patient's perioperative period was relatively unremarkable. He reportedly had a brief episode of bradycardia and associated hypotension intraoperatively. It was felt the patient to be best monitored in the intensive care unit. He was extubated in recovery without incident. Patient is currently resting comfortably in bed, on 2 L/min nasal cannula, in no acute distress. Chest x-ray does not show any acute cardiopulmonary process. He does report some mild postsurgical lumbar back pain which is controlled with as needed Dilaudid and Canova's. Bilateral lower extremities have good strength. There is some right lower extremity numbness, which is chronic, and not worse from baseline. No bowel incontinence. Patient does have an indwelling urinary catheter draining adequate amounts of urine. Heart rhythm on bedside monitor appears normal sinus with a rate of 70 bpm. Blood pressure is now normotensive. Not requiring any vasopressors. Estimated blood loss intraoperatively was approximately 900 mL. Patient did receive 1 unit PRBC and 2.7 L of crystalloid fluid. Most recent postoperative CBC includes a WBC count of 10.5, hemoglobin 12.8, hematocrit 37.8, and platelets 127. There is a Hemovac with a total of 370 mL of sanguinous output reported. Vital signs are stable. The patient is seen today December 14, 2023 in follow-up in the intensive care unit. He is currently sitting up in bed. Awake and alert in no acute distress. He is maintaining good O2 saturations in the 90s on 2 L/min per nasal cannula. He has lactated Ringer's at 20 mph. He is remaining in sinus rhythm. Follow-up CT scan of the lumbar spine revealed postsurgical changes without evidence of immediate postoperative complication. He is status post 1 unit of packed red blood cells this admission. Globin 13.2. His pain is adequately controlled. The patient is seen today December 15, 2023 in follow-up on the regular medical floor. He is currently sitting up in bed. Awake and alert in no acute distress. He is maintaining O2 saturations in the 90s on 2 L/min per nasal cannula. No IV fluids. He did have an episode of orthostatic hypotension earlier this morning. Currently hemodynamically stable. He has been afebrile. He is status post 1 unit of packed red blood cells this admission. Most recent hemoglobin 13.2. Glucose 85. Working well with physical therapy. The patient is seen today December 16, 2023 in follow-up on the regular medical floor. He is currently resting comfortably in bed. Awake and alert in no acute distress. He is maintaining good O2 saturations in the 90s on 2 L/min per nasal cannula. No IV fluids. He is working well with physical therapy. Plan is for inpatient rehabilitation on Monday. Glucose 94. Pain is well-controlled. The patient is seen today December 17, 2023 in follow-up on the regular medical floor. He is awake and alert no acute distress. Sitting up in bed. Maintaining good O2 saturations in the 90s on room air. No IV fluids. No further orthostatic hypotension today. He remains on Antivert as needed. White count 7.2. Hemoglobin 12.1. Platelets 186. Sodium 138. Potassium 3.9. Bicarb 30. BUN 12. Creatinine 0.79. Glucose 110. On today's evaluation of 12/18/2023, patient is being seen for a follow-up. Patient is doing well. No specific complaints. The patient underwent an elective T10 to pelvis decompression and fusion. His pain is under adequate control and the patient is currently on Canova 10 mg alternating with 5 mg. He was also started on Senokot and milk of mag for bowel movement activity. He is using the incentive spirometer. Currently is on room air oxygen. Increase mobility and possibly some rehabilitation. He is complaining of some dizzinessNo new labs from today. Labs from yesterday was noted and the patient's hemoglobin is at 12.1 with a normal renal function. Objective - Vital Signs Vital signs: Vital Signs Temp 98.1 F 12/18/23 07:10 Pulse 88 12/18/23 08:00 Resp 18 12/18/23 08:00 BP 140/71 12/18/23 07:10 Pulse Ox 85 L 12/18/23 08:13 FiO2 21 12/18/23 08:13 Intake & Output 12/17/23 12/18/23 12/18/23 18:59 06:59 18:59 Output Total 90 900 Balance -90 -900 Output: Drainage 90 Right Posterior Back 90 Urine 900 Other: Voiding Method Urinal Urinal # Bowel Movements 1 ABP, PAP, CO, CI - Last Documented Arterial Blood Pressure 134/53 - Exam GENERAL EXAM: Alert, 73-year-old male, sitting up in bed, on room air, in no apparent distress. HEAD: Normocephalic and atraumatic EYES: Normal reaction of pupils, equal size. NOSE: Clear with pink turbinates. THROAT: No erythema or exudates. NECK: No masses, no JVD. CHEST: No chest wall deformity. LUNGS: Equal air entry with no crackles, wheeze, rhonchi or dullness. No conversational dyspnea. CVS: S1 and S2 normal with no audible murmur, regular rhythm. No extra heart sounds ABDOMEN: No hepatosplenomegaly, active bowel sounds, no guarding or rigidity. SPINE: No scoliosis or deformity. Surgical dressing dry and intact SKIN: No rashes CENTRAL NERVOUS SYSTEM: No focal deficits, tone is normal in all 4 extremities. EXTREMITIES: There is no peripheral edema, clubbing, or cyanosis. Peripheral pulses are intact. - Labs CBC & Chem 7: 12/17/23 07:06 12/17/23 07:06 Labs: Abnormal Lab Results - Last 24 Hours (Table) 12/17/23 Range/Units 16:49 POC Glucose (mg/dL) 111 H (70-110) mg/dL Assessment and Plan Plan: Severe multilevel thoracolumbar spondylosis/stenosis with radiculopathy and neurogenic claudication status post-operative day # 5 following a T10 to pelvis decompression and fusion. Acute blood loss anemia, expected outcome of surgery, status post 1 unit PRBC transfusion, current hemoglobin is stable Possible vasovagal episode with hypotension and bradycardia, stabilized History of hypertension History of hyperlipidemia History of coronary disease History of asthma, stable History of obstructive sleep apnea without CPAP Plan: Overall pulmonary status is stable and the patient is using incentive spirometer Increase mobility Currently stable and on room air The plan is to send this patient to the rehabilitation
== END 2023-12-18 16:14 | DRG 454 ==
LOC: 2ORMAIN 05:38 → 2SICU 15:37 → 4SSUR 12-15 05:25
PROVIDERS: ADMIT Orthopaedic Surgery; ATTEND Orthopaedic Surgery
PROC: 0RG6071 Fusion of Thoracic Vertebral Joint with Autologous Tissue Substitute, Posterior Approach, Posterior Column, Open Approach (ICD-10-PCS; 2023-12-12)
PROC: 0SG1071 Fusion of 2 or more Lumbar Vertebral Joints with Autologous Tissue Substitute, Posterior Approach, Posterior Column, Open Approach (ICD-10-PCS; 2023-12-12)
PROC: 0SG30AJ Fusion of Lumbosacral Joint with Interbody Fusion Device, Posterior Approach, Anterior Column, Open Approach (ICD-10-PCS; 2023-12-12)
PROC: 0SG3071 Fusion of Lumbosacral Joint with Autologous Tissue Substitute, Posterior Approach, Posterior Column, Open Approach (ICD-10-PCS; 2023-12-12)
PROC: 0RG60AJ Fusion of Thoracic Vertebral Joint with Interbody Fusion Device, Posterior Approach, Anterior Column, Open Approach (ICD-10-PCS; 2023-12-12)
PROC: 01NB0ZZ Release Lumbar Nerve, Open Approach (ICD-10-PCS; 2023-12-12)
PROC: 01NR0ZZ Release Sacral Nerve, Open Approach (ICD-10-PCS; 2023-12-12)
PROC: 00NY0ZZ Release Lumbar Spinal Cord, Open Approach (ICD-10-PCS; 2023-12-12)
PROC: 0ST20ZZ Resection of Lumbar Vertebral Disc, Open Approach (ICD-10-PCS; 2023-12-12)
PROC: 30233N1 Transfusion of Nonautologous Red Blood Cells into Peripheral Vein, Percutaneous Approach (ICD-10-PCS; 2023-12-12)
PROC: 0SG10AJ Fusion of 2 or more Lumbar Vertebral Joints with Interbody Fusion Device, Posterior Approach, Anterior Column, Open Approach (ICD-10-PCS; principal; 2023-12-12 07:30)
DX: M43.16 Spondylolisthesis, lumbar region (principal); D62 Acute posthemorrhagic anemia; M47.16 Other spondylosis with myelopathy, lumbar region; M48.04 Spinal stenosis, thoracic region; M48.05 Spinal stenosis, thoracolumbar region; I10 Essential (primary) hypertension; J45.909 Unspecified asthma, uncomplicated; M48.062 Spinal stenosis, lumbar region with neurogenic claudication; M47.27 Other spondylosis with radiculopathy, lumbosacral region; M62.562 Muscle wasting and atrophy, not elsewhere classified, left lower leg; M62.561 Muscle wasting and atrophy, not elsewhere classified, right lower leg; M40.30 Flatback syndrome, site unspecified; M43.6 Torticollis; N40.0 Benign prostatic hyperplasia without lower urinary tract symptoms; M10.9 Gout, unspecified; G47.33 Obstructive sleep apnea (adult) (pediatric); I25.10 Atherosclerotic heart disease of native coronary artery without angina pectoris; I95.1 Orthostatic hypotension; E78.5 Hyperlipidemia, unspecified; D72.828 Other elevated white blood cell count; M47.25 Other spondylosis with radiculopathy, thoracolumbar region; Z74.1 Need for assistance with personal care; R42 Dizziness and giddiness; K21.9 Gastro-esophageal reflux disease without esophagitis; I25.2 Old myocardial infarction; Z79.82 Long term (current) use of aspirin; Z79.899 Other long term (current) drug therapy
CPT/HCPCS: 71045; 72100; 72128; 72131; 80048; 82805; 83735; 85025; 85027; 86850; 86891; 86900; 86901; 86920; 94760